=== PATIENT | female | born 1995 | race African-American/Black ===

== ENCOUNTER 2024-04-29 12:20 | Outpatient (RCR) | payer OTHER, SELFPAY ==
[2024-04-29] MEDS: RHO(D) IMMUNE GLOBULIN 1,500 UNIT SYRINGE 1500 UNIT IM (14:32)
[2024-04-29 15:20] VITALS: BP 107/67; PULSE 96; TEMP 36.6; O2SAT 97
== END 2024-05-06 23:59 | disposition home or self-care (01) ==
LOC: INF 12:20
PROVIDERS: PCP Family Medicine; Visit Provider Midwife
DX: O26.893 Other specified pregnancy related conditions, third trimester (principal); Z67.91 Unspecified blood type, Rh negative
CPT/HCPCS: 36415; 86850; 86900; 86901; 96372; J2791

== ENCOUNTER 2024-07-05 17:49 | Observation (INO) | payer OTHER, SELFPAY ==
--- OUTSIDE RECORDS SUMMARY | 2024-07-05 17:55 | XMS_ITS | CCD ---
Author Organization [facility] Care Team Providers Care Clay Digger Name Role Phone Elías LUO, Mariela Torre Primary Care Provider BYRON BROWNING Attending Unavailable FLORO, BYRON L Referring Unavailable FLORO, BYRON L Attending Unavailable FLORO, BYRON Loretta Attending Unavailable FLORO, BYRON Loretta Attending Unavailable FLORO, BYRON L Referring Unavailable FLORO, BYRON Burgos Attending Unavailable MARIELA MAE Attending Unavailable FLORO, BYRON Burgos Attending Unavailable FLORO, BYRON Loretta Referring Unavailable FLORO, BYRON Loretta Attending Unavailable FLORO, BYRON Loretta Attending Unavailable FLORO, BYRON Loretta Attending Unavailable Medications Current Medications Medication Drug Class(es) Dates Sig (Normalized) Sig (Original) aspirin 81 mg delayed release oral tablet (12 sources) Platelet Aggregation Inhibitor, Nonsteroidal Anti-inflammatory Drug Start: 04-07-2024 End: 04-07-2025 take 1 tablet by mouth once daily aspirin 81 MG EC tablet Indications: COVID Take 1 tablet (81 mg) by mouth Daily 30 tablet 4 04/07/2024 04/07/2025 Active ondansetron 8 mg disintegrating oral tablet (20 sources) Serotonin-3 Receptor Antagonist Start: 12-11-2023 take 1 tablet by mouth every eight hours for nausea ondansetron ODT (Zofran-ODT) 8 MG disintegrating tablet Indications: Nausea/vomiting in Take 1 tablet (8 mg) by mouth every 8 (eight) hours if needed for nausea or vomiting 20 tablet 1 12/11/2023 Active MV-Min-Fe Fum-FA-DHA ( 1 PO) (20 sources) MV-Min- Fe Fum-FA-DHA ( 1 PO) Take by mouth Active terconazole 4 mg/ml vaginal cream (3 sources) Azole Antifungal Start: 03-31-2024 End: 04-07-2024 terconazole (Terazol 7) 0.4 % vaginal cream Indications: Yeast infection Insert 1 applicator into the vagina at bedtime for 7 days 45 g 03/31/2024 04/07/2024 Active Problems Active Problems Problem Classification Problem Date Documented Da te Episodic/Chronic Headache; including migraine (15 sources) Migraine without aura, not refractory ; Translations: [Migraine without aura, not intractable, without status migrainosus] Onset: 04-06-2024 04-06-2024 Chronic Malaise and fatigue (15 sources) Fatigue; Translations: [Chronic fatigue, unspecified] Onset: 04-06-2024 04-06-2024 Chronic Menstrual disorders (15 sources) Amenorrhea; Translations: [Amenorrhea, unspecified] Onset: 04-06-2024 04-06-2024 Chronic Other complications of (4 sources) Finding related to ; Translations: [ related conditions, unspecified, third trimester] 04-26-2024 Episodic Other lower respiratory disease (2 sources) Cough; Translations: [Acute cough] 04-06-2024 Episodic Other nervous system disorders (15 sources) Chronic pain; Translations: [Other chronic pain] Onset: 04-06-2024 04-06-2024 Chronic Other screening for suspected conditions (not mental disorders or infectious disease) (4 sources) Patient encounter status; Translations: [Encounter for screening for diseases of the blood and blood-forming organs and certain disorders involving the immune mechanism] 04-26-2024 Episodic Other upper respiratory disease (15 sources) Allergic rhinitis due to pollen; Translations: [Allergic rhinitis due to pollen] Onset: 04-06-2024 04-06-2024 Chronic Substance-related disorders (2 sources) Marijuana user; Translations: [Cannabis use, unspecified, uncomplicated] 03-29-2024 Episodic Viral infection (2 sources) Disease caused by 2019-nCoV; Translations: [COVID-19] 04-06-2024 Episodic Past or Other Problems Problem Classification Problem Date Documented Da te Episodic/Chronic Other and delivery including normal (20 sources) Term ; Translations: [Encounter for supervision of normal , unspecified, unspecified trimester] Onset: 08-17-2018 04-06-2024 Episodic Results Test Name Value Interpretation Reference Range Facility US OB FOLLOW UP TRANSABDOMIN AL APPROACHon 05-10-2024 US OB FOLLOW UP TRANSABDOMINAL APPROACH TITLE OF EXAM: OB Ultrasound: REASON FOR EXAM: Growth. TECHNIQUE: Grayscale and color Doppler imaging is performed. Measurements: heart rate: 143 bpm DYLLAN: 15.8 cm (9.1-23.3) BPD: 7.5 cm HC: 27.3 cm AC: 25.8 cm FL: 5.7 cm GA for sonogram: 29.5 wks (27.7-31.3) Cervix length: 5.9 cm GEETHA: 07/22/2024 Weight Estimate: Weight: 1481 gm / 3 lbs, 4 oz (1406-6432 gm) Hadlock Normal: 1513 gm (8571-0506 gm) Hadlock Wt%: 44% for 29.7 wks CLINICAL SUMMARY: A single intrauterine is noted in cephalic presentation. heart is observed with a heart rate of 143 BPM. size is normal. growth: Consistent with normal growth. motion and organs seen: body and limb movements are observed. Placenta is located posteriorly and fundal. Placenta is Grade II/III Amniotic fluid volume is normal. IMPRESSION: Normal growth. Dictated and transcribed 05/11/24/dpd This report has been electronically signed and approved by the interpreting radiologist. Normal Not Available Laboratory - Microbiology an d Antimicrobial susceptibilityon 04-06-2024 SARS-CoV-2 (COVID-19) RNA SABINO+probe Ql (Unsp spec) Positive Visual[facility] No Panel Informationon 04-06 FLU A Negative [facility] FLU B Negative [facility] [facility] Interpretation and review of laboratory results Abnormal [employer] [facility] US OB 14+ WEEKS ANATOMY SCAN on 03-01-2024 US OB 14+ WEEKS ANATOMY SCAN TITLE OF EXAM: OB Ultrasound: REASON FOR EXAM: survey. TECHNIQUE: Grayscale and color Doppler imaging is performed. Measurements: heart rate: 151 bpm DYLLAN: 16.5 cm (9.2-21.0) BPD: 4.4 cm HC: 16.1 cm AC: 14.9 cm FL: 3.0 cm GA for sonogram: 19.2 wk (17.8-20.6) Hadlock Cervix length: 3.6 cm GEETHA: 07/22/2024 Weight Estimate: Weight: 305 gm / 0 lbs, 10 oz (260-349 gm) Hadlock Normal: 308 gm (256-360 gm) Hadlock Wt%: 48% for 19.6 wks CLINICAL SUMMARY: A single intrauterine is noted in cephalic presentation. Four chamber heart is observed with a heart rate of 151 BPM. motion and organs seen: Normal intracranial anatomy is seen. body and limb movements are observed. spine, limbs, bladder, kidneys, and stomach are observed and within normal limits. Umbilical cord insertion and three vessel cord are identified and within normal limits. diaphragm, lungs, genitalia, four limbs are visualized and normal in appearance. Placenta is located posteriorly. Placenta is Grade 0/III Amniotic fluid volume is normal. Dictated and transcribed 03/03/24/dpd This report has been electronically signed and approved by the interpreting radiologist. Electronically Signed Ruben Rojas M.D. 2024-03-03 12:47:49 Normal Not Available US OB < 14 WEEKS EARLYon US OB < 14 WEEKS EARLY FINDINGS: A single intrauterine gestational sac is present, 3.1 cm,. No subchorionic hemorrhage. A single pole is present. Normal heart rate at 147 beats per minute. Yolk sac also is seen. Current sonographic age is 7 weeks and 3 days based on the crown-rump length measurement of 1.3 cm. Based on this age, current estimated date of delivery is July 23, 2024. No pelvic fluid or adnexal mass present. Cervical closed. Irregular heterogeneous 1.0 x 2.0 cm area deep within the decidual reaction of the lower uterine segment near the cervical uterine junction. IMPRESSION: 1. Findings consistent with a live intrauterine gestation, current sonographic age of 7 weeks and 6 days resulting in an estimated date of delivery of July 23, 2024. 2. Decidual reaction findings of questionable significance. This study can serve as a baseline for follow up examination. TRANSCRIBED BY: ELECTRONICALLY SIGNED BY: Derik Mayfield MD Normal Not Available Vital Signs Date Time Vital Sign Value Performing Clinician Faci lity 06-08-2024 16:23-0500 Body mass index (BMI) [Ratio] 36.61 kg/m2 Byron Browning [facility] Work Phone: [facility] 06-08-2024 16:23-0500 Body weight 99.79 kg Byron Floro CNM Work Phone: [facility] 06-08-2024 16:23-0500 Diastolic blood pressure 78 mm[Hg] Byron Floro CNM Work Phone: [facility] 06-08-2024 16:23-0500 Systolic blood pressure 128 mm[Hg] Byron Floro CNM Work Phone: [facility] 05-26-2024 15:45-0500 Body mass index (BMI) [Ratio] 34.45 kg/m2 Byron Floro CNM Work Phone: [facility] 05-26-2024 15:45-0500 Body weight 93.89 kg Byron Floro CNM Work Phone: [facility] 05-26-2024 15:45-0500 Diastolic blood pressure 80 mm[Hg] Byron Floro CNM Work Phone: [facility] 05-26-2024 15:45-0500 Systolic blood pressure 128 mm[Hg] Byron Floro CNM Work Phone: [facility] 04-26-2024 15:08-0400 Body mass index (BMI) [Ratio] 34.61 kg/m2 Byron Floro CNM Work Phone: [facility] 04-26-2024 15:08-0400 Body weight 94.35 kg Byron Floro CNM Work Phone: [facility] 04-26-2024 15:08-0400 Diastolic blood pressure 60 mm[Hg] Byron Floro CNM Work Phone: [facility] 04-26-2024 15:08-0400 Systolic blood pressure 120 mm[Hg] Byron Floro CNM Work Phone: [facility] 04-06-2024 13:03-0400 Body height 165.1 cm Mariela Mae MD Work Phone: [facility] 04-06-2024 13:03-0400 Body mass index (BMI) [Ratio] 33.85 kg/m2 Mariela Mae MD Work Phone: [facility] 04-06-2024 13:03-0400 Body weight 92.26 kg Mariela Mae MD Work Phone: [facility] 04-06-2024 13:03-0400 Diastolic blood pressure 86 mm[Hg] Mariela Mae MD Work Phone: [facility] 04-06-2024 13:03-0400 Heart rate 108 /min Mariela Mae MD Work Phone: [facility] 04-06-2024 13:03-0400 Respiratory rate 18 /min Mariela Mae MD Work Phone: [facility] 04-06-2024 13:03-0400 SaO2% (BldA) [Mass fraction] 98 % Mariela Mae MD Work Phone: [facility] 04-06-2024 13:03-0400 Systolic blood pressure 132 mm[Hg] Mariela Mae MD Work Phone: [facility] 03-29-2024 17:36-0400 Body mass index (BMI) [Ratio] 34.45 kg/m2 Byron Contreraso CNM Work Phone: [facility] 03-29-2024 17:36-0400 Body weight 93.89 kg Byron Floro CNM Work Phone: [facility] 03-29-2024 17:36-0400 Diastolic blood pressure 78 mm[Hg] Byron Dianeo CNM Work Phone: [facility] 03-29-2024 17:36-0400 Systolic blood pressure 120 mm[Hg] Byron Dianeo CNM Work Phone: [facility] 03-01-2024 16:32-0400 Body mass index (BMI) [Ratio] 32.95 kg/m2 Byron Dianeo CNM Work Phone: [facility] 03-01-2024 16:32-0400 Body weight 89.81 kg Byron Contreraso CNM Work Phone: [facility] 03-01-2024 16:32-0400 Diastolic blood pressure 60 mm[Hg] Byron Dianeo CNM Work Phone: [facility] 03-01-2024 16:32-0400 Systolic blood pressure 110 mm[Hg] Byron Dianeo CNM Work Phone: [facility] 02-03-2024 16:32-0400 Body mass index (BMI) [Ratio] 32.62 kg/m2 Byron Contreraso CNM Work Phone: [facility] 02-03-2024 16:32-0400 Body weight 88.91 kg Byron Contreraso CNM Work Phone: [facility] 02-03-2024 16:32-0400 Diastolic blood pressure 76 mm[Hg] Byron Dianeo CNM Work Phone: [facility] 02-03-2024 16:32-0400 Systolic blood pressure 120 mm[Hg] Byron Dianeo CNM Work Phone: [facility] Encounters Encounter Date Encounter Type Care Provider Facility Start: 07-05-2024 End: 07-05-2024 Telephone encounter Byron Browning CNM Work Phone: [facility] Start: 06-22-2024 End: 06-22-2024 ambulatory BYRON L FLORO Not Available Start: 06-22-2024 End: 06-22-2024 Bamboo flowsheet Byron Loretta Contreraso CNM Work Phone: [facility] Start: 06-22-2024 End: 06-22-2024 Bamboo flowsheet Byron Loretta Contreraso CNM Work Phone: [facility] Start: 06-08-2024 End: 06-08-2024 ambulatory BYRON L FLORO Not Available Start: 06-08-2024 End: 06-08-2024 Subsequent care visit Byron Contreraso CNM Work Phone: [facility] Comment on above: Encounter for superv ision of other normal , third trimester (Primary Dx) Start: 06-08-2024 End: 06-08-2024 Bamboo flowsheet Byron L Floro CNM Work Phone: [facility] Start: 06-08-2024 End: 06-08-2024 Bamboo flowsheet Byron L Floro CNM Work Phone: [facility] Start: 05-27-2024 End: 07-05-2024 Telephone encounter Byron L Floro CNM Work Phone: [facility] Start: 05-26-2024 End: 05-26-2024 Office outpatient visit 15 minutes Byron L Floro CNM Work Phone: [facility] Comment on above: Encounter for superv ision of other normal , third trimester (Primary Dx) Start: 05-26-2024 End: 05-26-2024 ambulatory BYRON L FLORO Not Available Start: 05-26-2024 End: 05-26-2024 Bamboo flowsheet Byron L Floro CNM Work Phone: [facility] Start: 05-26-2024 End: 05-26-2024 Bamboo flowsheet Byron L Floro CNM Work Phone: [facility] Start: 05-10-2024 End: 05-10-2024 ambulatory BYRON L FLORO Not Available Start: 04-26-2024 End: 04-26-2024 Office outpatient visit 15 minutes Byron L Floro CNM Work Phone: [facility] Comment on above: Screening for iron d eficiency anemia; Screening for diabetes mellitus; related condition in third trimester Start: 04-26-2024 End: 04-26-2024 ambulatory BYRON L FLORO Not Available Start: 04-26-2024 End: 04-26-2024 Bamboo flowsheet Byron L Floro CNM Work Phone: [facility] Start: 04-26-2024 End: 04-26-2024 Bamboo flowsheet Byrno L Floro CNM Work Phone: [facility] Start: 04-07-2024 End: 04-07-2024 Telephone encounter Byron L Floro CNM Work Phone: [facility] Start: 04-06-2024 End: 04-06-2024 Office outpatient visit 15 minutes Mariela Mae MD Work Phone: [facility] Comment on above: COVID-19 (Primary Dx ); Acute cough Start: 04-06-2024 End: 04-06-2024 ambulatory MARIELA MAE Not Available Start: 03-29-2024 End: 03-29-2024 Office outpatient visit 15 minutes Byron L Floro CNM Work Phone: [facility] Comment on above: Encounter for superv ision of other normal , second trimester (Primary Dx); Marijuana use Start: 03-29-2024 End: 03-29-2024 ambulatory BYRON L FLORO Not Available Start: 03-29-2024 End: 03-29-2024 Bamboo flowsheet Byron L Floro CNM Work Phone: [facility] Start: 03-29-2024 End: 03-29-2024 Bamboo flowsheet Byron L Floro CNM Work Phone: [facility] Start: 03-17-2024 End: 03-17-2024 Telephone encounter Byron L Floro CNM Work Phone: [facility] Start: 03-01-2024 End: 03-01-2024 Office outpatient visit 15 minutes Byron L Floro CNM Work Phone: [facility] Comment on above: Encounter for superv ision of other normal , second trimester (Primary Dx) Start: 03-01-2024 End: 03-01-2024 ambulatory BYRON L FLORO Not Available Start: 03-01-2024 End: 03-01-2024 Bamboo flowsheet Byron L Floro CNM Work Phone: [facility] Start: 03-01-2024 End: 03-01-2024 Bamboo flowsheet Byron L Floro CNM Work Phone: [facility] Start: 02-03-2024 End: 02-03-2024 Office outpatient visit 15 minutes Byron L Floro CNM Work Phone: [facility] Comment on above: related co ndition in second trimester (Primary Dx); Encounter for supervision of other normal , second trimester Start: 02-03-2024 End: 02-03-2024 ambulatory BYRON L FLORO Not Available Start: 01-05-2024 End: 01-05-2024 ambulatory BYRON L FLORO Not Available Start: 12-11-2023 End: 12-11-2023 ambulatory BYRON L FLORO Not Available Procedures Date Procedure Procedure Detail Performing Clinician Start: 04-06-2024 STATUS COVID-19/FLU Heidy Mae MD Work Phone: Plan of Treatment Date Care Activity Detail Author Start: 07-12-2024 End: 07-12-2024 Patient encounter procedure 07/12/2024 6:30 PM EST Routine [facility] [address] [place] [id number] Byron Browning, CN [address] [place] [address] [facility] Start: 07-05-2024 End: 07-05-2024 Patient encounter procedure [facility] Start: 06-22-2024 End: 06-22-2024 Patient encounter procedure 06/22/2024 4:15 PM EST Routine [facility] [address] [place] [id number] Byron Browning, CNM [address] [place] [address] [facility] Start: 06-08-2024 End: 06-08-2024 Patient encounter procedure 06/08/2024 4:15 PM EST Routine [facility] [address] [place] [id number] Byron Browning, [facility] [address] [place] [address] [facility] Start: 06-01-2024 Influenza vaccination Influenza Vacc ine (#1) [facility] Comment on above: Postponed from 03/07 (Patient Ill Today) Start: 05-26-2024 End: 05-26-2024 Patient encounter procedure 05/26/2024 3:45 PM EST Routine [facility] [address] [place] [address] Byron Browning, [facility] [address] [place] [address] Arrived [facility] Comment on above: Arrived Start: 04-26-2024 End: 04-26-2024 Patient encounter procedure [facility] Comment on above: Arrived Start: 04-26-2024 End: 04-26-2025 CBC panel - Blood by Automated count CBC Lab Routine Screening for iron deficiency anemia Expected: 04/26/2024 (Approximate), Expires: 04/26/2025 [facility] Comment on above: Expected: 04/26/2024 (Approximate), Expires: 04/26/2025 Start: 04-26-2024 End: 04-26-2025 GLUCOSE, GESTATIONAL SCREEN (50G)-135 CUTOFF GLUCOSE, GESTATIONAL SCREEN (50G)-135 CUTOFF Lab Routine Screening for diabetes mellitus Expected: 04/26/2024 (Approximate), Expires: 04/26/2025 [facility] Work Phone: Comment on above: Expected: 04/26/2024 (Approximate), Expires: 04/26/2025 Start: 04-26-2024 End: 04-26-2025 US for US OB follow up transabdominal approach Imaging Routine related condition in third trimester Expected: 04/26/2024, Expires: 04/26/2025 [facility] Comment on above: Expected: 04/26/2024 , Expires: 04/26/2025 Start: 03-29-2024 End: 03-29-2024 Patient encounter procedure [facility] Comment on above: Arrived Start: 03-07-2024 Influenza vaccination Influenza Vacc ine (#1) [facility] Start: 03-01-2024 End: 03-01-2024 Professional / ancillary services management 03/01/2024 5:00 PM EDT Ancillary Procedure [facility] [address] [place] [address] [facility] Start: 03-01-2024 End: 03-01-2024 Patient encounter procedure [facility] Comment on above: Arrived Start: 02-03-2024 End: 02-02-2025 US for US OB 14+ weeks anatomy scan Imaging Routine related condition in second trimester Expected: 02/03/2024, Expires: 02/02/2025 [facility] Work Phone: Comment on above: Expected: 02/03/2024 , Expires: 02/02/2025 Immunizations Immunization Date Immunization Notes Care Provider Cheal brooke 08-19-2018 tetanus toxoid, redu nadia diphtheria toxoid, and acellular pertussis vaccine, adsorbed Mariela Mae MD Work Phone: [facility] 08-18-2018 RHO(D) immune globul in- IV or IM Mariela Mae MD Work Phone: [facility] 06-01-2018 RHO(D) immune globul in- IV or IM Mariela Mae MD Work Phone: [facility] 05-18-2018 influenza, injectabl e, quadrivalent, contains preservative Mariela Mae MD Work Phone: [facility] 05-18-2018 tetanus toxoid, redu nadia diphtheria toxoid, and acellular pertussis vaccine, adsorbed Mariela Mae MD Work Phone: [facility] 05-18-2018 influenza virus vacc ine, unspecified formulation Byron Browning CNM Work Phone: [facility] 09-05-2010 human papilloma viru s vaccine, quadrivalent Mariela Mae MD Work Phone: [facility] 09-05-2010 varicella virus vaccine Mariela Mae MD Work Phone: [facility] 04-23-2010 human papilloma viru s vaccine, quadrivalent Mariela Mae MD Work Phone: [facility] 02-19-2010 human papilloma viru s vaccine, quadrivalent Mariela Mae MD Work Phone: [facility] 02-19-2010 meningococcal polysaccharide (groups A, C, Y and W-135) diphtheria toxoid conjugate vaccine (MCV4P) Mariela Mae MD Work Phone: [facility] 02-19-2010 tetanus toxoid, redu nadia diphtheria toxoid, and acellular pertussis vaccine, adsorbed Mariela Mae MD Work Phone: [facility] 09-09-2002 diphtheria, tetanus toxoids and acellular pertussis vaccine, 5 pertussis antigens Mariela Mae MD Work Phone: [facility] 09-09-2002 measles, mumps and r ubella virus vaccine Mariela Mae MD Work Phone: [facility] 09-09-2002 poliovirus vaccine, inactivated Mariela Mae MD Work Phone: [facility] 10-18-1998 diphtheria, tetanus toxoids and acellular pertussis vaccine, unspecified formulation Mariela aMe MD Work Phone: [facility] 10-18-1998 haemophilus influenz ae type b vaccine, conjugate unspecified formulation Mariela Mae MD Work Phone: [facility] 07-06-1998 measles, mumps and r ubella virus vaccine Mariela Mae MD Work Phone: [facility] 07-06-1998 trivalent poliovirus vaccine, live, oral Mariela Mae MD Work Phone: [facility] 07-06-1998 varicella virus vaccine Mariela Mae MD Work Phone: [facility] 01-02-1998 diphtheria, tetanus toxoids and acellular pertussis vaccine, unspecified formulation Mariela Mae MD Work Phone: [facility] 01-02-1998 haemophilus influenz ae type b conjugate and Hepatitis B vaccine Mariela Mae MD Work Phone: [facility] 1997 diphtheria, tetanus toxoids and acellular pertussis vaccine, unspecified formulation Mariela Mae MD Work Phone: [facility] 1997 haemophilus influenz ae type b vaccine, conjugate unspecified formulation Mariela Mae MD Work Phone: [facility] 1997 poliovirus vaccine, inactivated Mariela Mae MD Work Phone: [facility] 1997 diphtheria, tetanus toxoids and acellular pertussis vaccine, unspecified formulation Mariela Mae MD Work Phone: [facility] 1997 haemophilus influenz ae type b conjugate and Hepatitis B vaccine Mariela Mae MD Work Phone: [facility] 1997 poliovirus vaccine, inactivated Mariela Mae MD Work Phone: [facility] 1997 hepatitis B vaccine, pediatric or pediatric/adolescent dosage Mariela Mae MD Work Phone: [facility] Payers Date Payer Category Payer Private Health Insurance [employer] [id number] 2023 Medicaid [id number] 2023 Medicaid [id number] 2023 Unknown [id number] 2022 Private Health Insurance [id number] 1997 Unknown [id number] [id number]. 9 1997 Unknown [id number] [id number]. 1258 1997 Unknown [id number] [id number]. 1258 1997 Unknown [id number] [id number]. 1258 1997 Unknown [id number] 2.16.840.1.880705.3.579.2. 1258 1997 Unknown [id number] 2.16.840.1.214655.3.579.2. 1258 1997 Unknown [id number] 2.16.840.1.105243.3.579.2. 9 1997 Unknown [id number] 2.16.840.1.241533.3.579.2. 1258 1997 Unknown [id number] 2.16.840.1.328864.3.579.2. 9 1997 Unknown [id number] 2.16.840.1.724891.3.579.2. 9 1997 Unknown [id number] 2.16.840.1.572155.3.579.2. 9 1997 Unknown [id number] 2.16.840.1.189023.3.579.2. 9 1997 Unknown [id number]. 1259 Social History Date Type Detail Facility Start: 12-11-2023 Tobacco smoking stat [facility] Never smoked tobacco [facility] Start: 12-11-2023 Tobacco use and exposure Smokeless t obacco non-user [facility] Start: 12-11-2023 End: 10-01-2024 Alcoholic beverage intake Ex-drinker (finding) [facility] Start: 12-11-2023 End: 04-06-2024 History of Social function [facility] Start: 12-11-2023 End: 04-06-2024 Tobacco use panel [facility] Start: 04-23-2023 Alcohol Comment Alcohol: 1 or 2 drinks on a typical day/monthly or less Caffeine: 2-3 cups/day coffee [facility] Start: 10-30-2023 [facility] Start: 1997 Sex assigned at Not on file [facility] Start: 09-18-2022 Gender identity Identifies as female gender (finding) [facility] Clinical Notes 02-03-2024 to 07-05-2024 Telephone Encounter - Gregoria Lam - 07/05/2024 2:18 PM ESTTelephone Encounter - Gregoria Lam - 07/05/2024 2:18 PM ESTByron Browning CNM - 06/08/2024 4:15 PM EST Note Date & Type Note Facility 07-05-2024 Telephone encount er Note Vm left 12:40 Pt is 38 weeks and hasn't been feeling well and would like a callback star [facility] 07-05-2024 Miscellaneous Notes Formattin g of this note might be different from the original. Vm left 12:40 Pt is 38 weeks and hasn't been feeling well and would like a callback star documented in this encounter [facility] 06-08-2024 History of Presen t illness Narrative Subjective No chief complaint on file. Nusrat Araiza is a 28 y.o. at 33w5d with a working estimated date of delivery of 07/22/2024, by Last Menstrual Period who presents for a routine visit. She denies vaginal bleeding, leakage of fluid, decreased movements, or contractions. OB History Para Term AB Living 3 2 2 0 0 2 SAB IAB Ectopic Multiple Live Births 0 0 0 0 2 # Outcome Date GA Lbr Jt/2nd Weight Sex Type Anes PTL Lv 3 Current 2 Term 08/18/18 39w1d 04:26 / 00:04 6 lb 7.4 oz M Vag-Spont EPI N MICKY 1 Term 03/19/16 40w0d F Vag-Spont EPI MICKY Obstetric Comments Ages of children: 4, 20 months Her is complicated by: Objective Physical Exam weight: 220 lb Expected Total Weight Gain: 11 lb-19 lb Pregravid BMI: 31.12 Heart Rate: 154 Urine protein-negative Urine glucose-negative Assessment/Plan Diagnoses and all orders for this visit: Encounter for supervision of other normal , third trimester Continue vitamin. Labs reviewed. GBS at 36 weeks Expected mode of delivery Follow up in 1 week for a routine visit. documented in this encounter [facility] 05-27-2024 Telephone encount er Note Pt states she cannot remember what medicine she was told that she could take for nausea heartburn. And now she is having some diarrhea. [facility] 05-27-2024 Miscellaneous Notes Formattin g of this note might be different from the original. Pt states she cannot remember what medicine she was told that she could take for nausea heartburn. And now she is having some diarrhea. documented in this encounter [facility] 05-26-2024 History of Presen t illness Narrative Subjective No chief complaint on file. Nusrat Araiza is a 28 y.o. at 31w6d with a working estimated date of delivery of 07/22/2024, by Last Menstrual Period who presents for a routine visit. She denies vaginal bleeding, leakage of fluid, decreased movements, or contractions. OB History Para Term AB Living 3 2 2 0 0 2 SAB IAB Ectopic Multiple Live Births 0 0 0 0 2 # Outcome Date GA Lbr Jt/2nd Weight Sex Type Anes PTL Lv 3 Current 2 Term 02/12/19 39w1d 04:26 / 00:04 6 lb 7.4 oz M Vag-Spont EPI N MICKY 1 Term 03/19/16 40w0d F Vag-Spont EPI MICKY Obstetric Comments Ages of children: 4, 20 months Her is complicated by: heartburn Objective Physical Exam weight: 207 lb Expected Total Weight Gain: 11 lb-19 lb Pregravid BMI: 31.12 BP: 128/80 Urine protein-negative Urine glucose-negative Assessment/Plan Diagnoses and all orders for this visit: Encounter for supervision of other normal , third trimester Continue vitamin. Labs reviewed. GBS at 36 weeks Expected mode of delivery Follow up in 2 weeks for a routine visit. documented in this encounter [facility] 04-26-2024 History of Presen t illness Narrative Subjective No chief complaint on file. Nusrat Araiza is a 28 y.o. at 27w4d with a working estimated date of delivery of 07/22/2024, by Last Menstrual Period who presents for a routine visit. She denies vaginal bleeding, leakage of fluid, decreased movements, or contractions. OB History Para Term AB Living 3 2 2 0 0 2 SAB IAB Ectopic Multiple Live Births 0 0 0 0 2 # Outcome Date GA Lbr Jt/2nd Weight Sex Type Anes PTL Lv 3 Current 2 Term 08/18/18 39w1d 04:26 / 00:04 6 lb 7.4 oz M Vag-Spont EPI N MICKY 1 Term 03/19/16 40w0d F Vag-Spont EPI MICKY Obstetric Comments Ages of children: 4, 20 months Her is complicated by: Objective Physical Exam weight: 208 lb Expected Total Weight Gain: 11 lb-19 lb Pregravid BMI: 31.12 BP: 120/60 Urine protein-negative Urine glucose-negative Assessment/Plan Diagnoses and all orders for this visit: Screening for iron deficiency anemia - CBC; Future Screening for diabetes mellitus - GLUCOSE, GESTATIONAL SCREEN (50G)-135 CUTOFF; Future related condition in third trimester - US OB follow up transabdominal approach; Future Continue vitamin. Labs reviewed. GBS at 36 weeks Expected mode of delivery Follow up in 2 weeks for a growth US and then 4 weeks for routine visit. documented in this encounter [facility] 04-07-2024 Telephone encount er Note Pt would like the rx for baby asprin sent to [facility] [place] in [place]. [facility] 04-07-2024 Miscellaneous Notes Formattin g of this note might be different from the original. Pt would like the rx for baby asprin sent to [facility] in [place]. documented in this encounter [facility] 04-06-2024 History of Presen t illness Narrative Nusrat Araiza is a 28 y.o. female presents with chief complaint of Cough and Generalized Body Aches HPI: HPI X 2 days 26 weeks , Denies dyspnea SUBJECTIVE: MEDICATIONS: Current Outpatient Medications Medication Instructions ondansetron ODT (ZOFRAN-ODT) 8 mg, Oral, Every 8 hours PRN MV-Min-Fe Fum-FA-DHA ( 1 PO) Oral terconazole (Terazol 7) 0.4 % vaginal cream 1 applicator, Vaginal, Nightly ALLERGIES: No Known Allergies SURGICAL HISTORY: No past surgical history on file. FAMILY HISTORY: No family history on file. SOCIAL HISTORY: Social History Tobacco Use Smoking status: Never Smokeless tobacco: Never Substance Use Topics Alcohol use: Not Currently Comment: Alcohol: 1 or 2 drinks on a typical day/monthly or less Caffeine: 2-3 cups/day coffee Drug use: Yes Types: Marijuana Depression: Not on file REVIEW OF SYMPTOMS: Review of Systems OBJECTIVE: Visit Vitals LMP 10/16/2023 (Exact Date) OB Status Smoking Status Never Visit Vitals BP 132/86 (BP Location: Left arm, Patient Position: Sitting, BP Cuff Size: Large adult) Pulse 108 Resp 18 Ht 5' 5 Wt 203 lb 6.4 oz LMP 10/16/2023 (Exact Date) SpO2 98% BMI 33.85 kg/m OB Status Smoking Status Never BSA 2.06 m Physical Exam Constitutional: Appearance: Normal appearance. She is normal weight. HENT: Head: Normocephalic and atraumatic. Right Ear: Tympanic membrane and ear canal normal. Left Ear: Tympanic membrane and ear canal normal. Nose: Congestion and rhinorrhea present. Mouth/Throat: Mouth: Mucous membranes are moist. Pharynx: Oropharyngeal exudate present. Eyes: Pupils: Pupils are equal, round, and reactive to light. Cardiovascular: Rate and Rhythm: Normal rate and regular rhythm. Heart sounds: No murmur heard. Pulmonary: Effort: Pulmonary effort is normal. Breath sounds: Normal breath sounds. No wheezing or rhonchi. Musculoskeletal: General: No swelling. Cervical back: Normal range of motion and neck supple. Right lower leg: No edema. Left lower leg: No edema. Lymphadenopathy: Cervical: No cervical adenopathy. Skin: General: Skin is warm and dry. Findings: No rash. Neurological: Mental Status: She is oriented to person, place, and time. Sensory: No sensory deficit. Gait: Gait normal. Psychiatric: Mood and Affect: Mood normal. Thought Content: Thought content normal. Judgment: Judgment normal. ASSESSMENT AND PLAN: Assessment/Plan Problem List Items Addressed This Visit None Visit Diagnoses COVID-19 - Primary Acute cough Relevant Orders STATUS COVID-19/FLU (Completed) Fluids tylenol rest. Short walks several times per day to prevent blood clots and pneumonia Call if increase dyspnea or change in symptoms documented in this encounter [facility] 03-29-2024 History of Presen t illness Narrative Subjective No chief complaint on file. Nusrat Araiza is a 28 y.o. at 23w4d with a working estimated date of delivery of 07/22/2024, by Last Menstrual Period who presents for a routine visit. She denies vaginal bleeding, leakage of fluid, decreased movements, or contractions. OB History Para Term AB Living 3 2 2 0 0 2 SAB IAB Ectopic Multiple Live Births 0 0 0 0 2 # Outcome Date GA Lbr Jt/2nd Weight Sex Type Anes PTL Lv 3 Current 2 Term 08/18/18 39w1d 04:26 / 00:04 6 lb 7.4 oz M Vag-Spont EPI N MICKY 1 Term 03/19/16 40w0d F Vag-Spont EPI MICKY Obstetric Comments Ages of children: 4, 20 months Her is complicated by: + marijuana use The following portions of the chart were reviewed this encounter and updated as appropriate: Objective Physical Exam weight: 207 lb Expected Total Weight Gain: 11 lb-19 lb Pregravid BMI: 31.12 BP: 120/78 Urine protein-negative Urine glucose-negative Labs: reviewed Imaging Assessment/Plan Diagnoses and all orders for this visit: Encounter for supervision of other normal , second trimester Marijuana use Continue vitamin. Labs reviewed Rhogam needed at 28 weeks GTT at 28 weeks Follow up in 4 weeks for a routine visit. documented in this encounter [facility] 03-17-2024 Telephone encount er Note Nusrat was put on a Steroid and an Antibiotic for Sinus inf - she wants to make sure its ok to take being . Please call her at [phone] [facility] 03-17-2024 Miscellaneous Notes Formattin g of this note might be different from the original. Nusrat was put on a Steroid and an Antibiotic for Sinus inf - she wants to make sure its ok to take being . Please call her at [phone] documented in this encounter [facility] 03-01-2024 History of Presen t illness Narrative Subjective No chief complaint on file. Nusrat Araiza is a 28 y.o. at 19w4d with a working estimated date of delivery of 07/22/2024, by Last Menstrual Period who presents for a routine visit. She denies vaginal bleeding, leakage of fluid, decreased movements, or contractions. OB History Para Term AB Living 3 2 2 0 0 2 SAB IAB Ectopic Multiple Live Births 0 0 0 0 2 # Outcome Date GA Lbr Jt/2nd Weight Sex Type Anes PTL Lv 3 Current 2 Term 08/18/18 39w1d 04:26 / 00:04 6 lb 7.4 oz M Vag-Spont EPI N MICKY 1 Term 03/19/16 40w0d F Vag-Spont EPI MICKY Obstetric Comments Ages of children: 4, 20 months Her is complicated by: The following portions of the chart were reviewed this encounter and updated as appropriate: Objective Physical Exam Expected Total Weight Gain: 11 lb-19 lb Pregravid BMI: 31.12 Urine protein-negative Urine glucose-negative Labs: reviewed Imaging Assessment/Plan Diagnoses and all orders for this visit: Encounter for supervision of other normal , second trimester Continue vitamin. Labs reviewed. Rhogam needed at 28 weeks GTT Follow up in 2 weeks for a routine visit. Subjective No chief complaint on file. Nusrat Araiza is a 28 y.o. at 19w4d with a working estimated date of delivery of 07/22/2024, by Last Menstrual Period who presents for a routine visit. She denies vaginal bleeding, leakage of fluid, decreased movements, or contractions. OB History Para Term AB Living 3 2 2 0 0 2 SAB IAB Ectopic Multiple Live Births 0 0 0 0 2 # Outcome Date GA Lbr Jt/2nd Weight Sex Type Anes PTL Lv 3 Current 2 Term 08/18/18 39w1d 04:26 / 00:04 6 lb 7.4 oz M Vag-Spont EPI N MICKY 1 Term 03/19/16 40w0d F Vag-Spont EPI MICKY Obstetric Comments Ages of children: 4, 20 months Her is complicated by: The following portions of the chart were reviewed this encounter and updated as appropriate: Objective Physical Exam weight: 198 lb Expected Total Weight Gain: 11 lb-19 lb Pregravid BMI: 31.12 BP: 110/60 Urine protein-negative Urine glucose-negative Labs: reviewed Imaging Assessment/Plan Diagnoses and all orders for this visit: Encounter for supervision of other normal , second trimester Continue vitamin. Labs reviewed. Rhogam needed at 28 weeks GTT at 28 weeks Follow up in 4 weeks for a routine visit. documented in this encounter [facility] 02-03-2024 History of Presen t illness Narrative Subjective No chief complaint on file. Nusrat Araiza is a 28 y.o. at 15w5d with a working estimated date of delivery of 07/22/2024, by Last Menstrual Period who presents for a routine visit. She denies vaginal bleeding, leakage of fluid, decreased movements, or contractions. OB History Para Term AB Living 3 2 2 0 0 2 SAB IAB Ectopic Multiple Live Births 0 0 0 0 2 # Outcome Date GA Lbr Jt/2nd Weight Sex Type Anes PTL Lv 3 Current 2 Term 08/18/18 39w1d 04:26 / 00:04 6 lb 7.4 oz M Vag-Spont EPI N MICKY 1 Term 03/19/16 40w0d F Vag-Spont EPI MICKY Obstetric Comments Ages of children: 4, 20 months Her is complicated by: + marijuana The following portions of the chart were reviewed this encounter and updated as appropriate: Objective Physical Exam weight: 196 lb Expected Total Weight Gain: 11 lb-19 lb Pregravid BMI: 31.12 BP: 120/76 Urine protein negative Urine glucose negative Labs: reviewed Imaging Assessment/Plan Diagnoses and all orders for this visit: related condition in second trimester - US OB 14+ weeks anatomy scan; Future Encounter for supervision of other normal , second trimester Continue vitamin. Labs reviewed. Rhogam needed A- negative GTT at 28 weeks Follow up in 4 weeks for a routine visit. documented in this encounter [facility] Evaluation note Diagnosis COVID-19- Primary Acute cough [facility] Diagnosis Screening for iron deficiency anemia Screening for diabetes mellitus related condition in third trimester documented [facility] Diagnosis Encounter for supervision of other normal , third trimester- Primary documented [facility]* Diagnosis Encounter for supervision of other normal , second trimester- Primary documented [facility]* Diagnosis related condition in second trimester- Primary Encounter for supervision of other normal , second trimester documented [facility] Diagnosis Encounter for supervision of other normal , second trimester- Primary Marijuana use documented in this encounter [facility] Summary Purpose Family History No Family History Records Found Advance Directives No Advanced Directives Records Found Additional Source Comments Reason for Visit (unrecogniz ed section and content) Reason Comments Cough Generalized Body Aches Care Teams (unrecognized sec tion and content) Clay Digger Relationship Specialty Start Date End Date Mariela Mae MD [address] [facility] [place] [address] PCP - General Family Medicine 11/12/22 Clay Digger Relationship Specialty Start Date End Date Mariela Mae MD [address] [facility] [place] [address] PCP - General Family Medicine 11/12/22 Clay Digger Relationship Specialty Start Date End Date Mariela Mae MD [address] [facility] [place] [address] PCP - General Family Medicine 11/12/22 Clay Digger Relationship Specialty Start Date End Date Mariela Mae MD [address] [facility] [place] [address] PCP - General Family Medicine 11/12/22 Clay Digger Relationship Specialty Start Date End Date Mariela Mae MD [address] [facility] [place] [address] PCP - General Family Medicine 11/12/22 Clay Digger Relationship Specialty Start Date End Date Mariela Mae MD [address] [facility] [place] [address] PCP - General Family Medicine 11/12/22 Clay Digger Relationship Specialty Start Date End Date Mariela Mae MD [address] [facility] [place] [address] PCP - General Family Medicine 11/12/22 Clay Digger Relationship Specialty Start Date End Date Mariela Mae MD [address] [facility] [place] [address] PCP - General Family Medicine 11/12/22 Clay Digger Relationship Specialty Start Date End Date Mariela Mae MD [address] [facility] [place], [place] [id number] PCP - General Family Medicine 11/12/22 INFORMATION SOURCE (unrecogn ized section and content) DATE CREATED AUTHOR 06/26/2024 [facility] FOR RECORDS PERTAINING TO PATIENTS WHO ARE OR HAVE BEEN ENROLLED IN A CHEMICAL DEPENDENCY/SUBSTANCEABUSE PROGRAM, SOME INFORMATION MAY BE OMITTED. This clinical summary was aggregated from multiple sources. Caution should be exercised in using it in the provision of clinical care. This summary normalizes information from multiple sources, and as a consequence, information in this document may materially change the coding, format and clinical context of patient data. In addition, data may be omitted in some cases. CLINICAL DECISIONS SHOULD BE BASED ON THE PRIMARY CLINICAL RECORDS. [facility]. provides no warranty or guarantee of the accuracy or completeness of information in this document.
[2024-07-05 18:05] VITALS: BP 134/88; PULSE 92
[2024-07-05 18:20] VITALS: BP 135/93; PULSE 89
[2024-07-05 18:27] LABS: Basophils Percent Auto 0.2 % (0.2-2.0); Eosinophils Absolute Auto 0.1 10^3/uL (0.0-0.7); Eosinophils Percent Auto 0.9 % (0.9-7.0); Hematocrit 33.4 % (36.0-48.0); Hemoglobin 11.6 g/dL (12.0-16.0); Immature Granulocytes Abs Auto 0.17 10^3/uL (0.00-0.03); Immature Granulocytes Pct Auto 1.4 % (0.0-0.5); Lymphocytes Absolute Auto 1.1 10^3/uL (1.2-3.8); Lymphocytes Percent Auto 9.4 % (20.5-60.0); Mean Corpuscular HGB Conc 34.7 g/dL (29.9-35.2); Mean Corpuscular Hemoglobin 30.4 pg (26.7-34.0); Mean Corpuscular Volume 87.4 fL (81.0-99.0); Mean Platelet Volume 10.4 fL (9.5-13.5); Monocytes Absolute Auto 0.5 10^3/uL (0.3-0.8); Monocytes Percent Auto 4.6 % (1.7-12.0); Neutrophils Absolute Auto 9.9 10^3/uL (1.4-6.5); Neutrophils Percent Auto 83.5 % (43.0-75.0); Platelet Count 254 10^3/uL (150-450); Red Blood Count 3.82 10^6/uL (4.20-5.40); Red Cell Distribution Width 13.1 % (11.0-15.0); White Blood Count 11.8 10^3/uL (4.0-11.0)
[2024-07-05 18:30] LABS: Protein Creatinine Ratio Urine 0.24; Total Protein Urine Random 23.6 mg/dL (<=11.9)
[2024-07-05 18:35] VITALS: BP 142/91; PULSE 91
[2024-07-05 18:42] LABS: Alanine Aminotransferase 24 U/L (14-59); Albumin Globulin Ratio 0.8; Albumin Level 2.8 g/dL (3.4-5.0); Alkaline Phosphatase 192 U/L (46-116); Aspartate Amino Transferase 22 U/L (15-37); BUN Creatinine Ratio 9.8; Bilirubin Total 0.5 mg/dL (0.2-1.0); Calcium 8.9 mg/dL (8.5-10.1); Carbon Dioxide 21.7 mmol/L (21.0-32.0); Chloride 103 mmol/L (98-107); Estimated GFR (African America >60 (>=60 mL/min/1.73m^2); Estimated GFR (Non-African Ame >60 (>=60 mL/min/1.73m^2); Globulin 3.5 g/dL; Glucose 79 mg/dL (74-106); Lactate Dehydrogenase 171 U/L (81-234); Potassium 3.7 mmol/L (3.5-5.1); Sodium 137 mmol/L (136-145); Total Protein 6.3 g/dL (6.4-8.2)
[2024-07-05 18:50] VITALS: BP 142/88; PULSE 99
[2024-07-05] MEDS: LABETALOL HCL 100 MG TABLET PO (19:32)
== END 2024-07-05 19:34 | disposition home or self-care (01) ==
PROVIDERS: Midwife; Admitting Provider Obstetrics & Gynecology; PCP Family Medicine; Visit Provider Obstetrics & Gynecology
DX: O16.9 Unspecified maternal hypertension, unspecified trimester (principal); Z3A.00 Weeks of gestation of pregnancy not specified
CPT/HCPCS: 36415; 59025; 80053; 82570; 83615; 84156; 85025; G0378; G0379

== ENCOUNTER 2024-07-12 00:34 | Outpatient (OUT) | payer OTHER, SELFPAY ==
--- NOTE | 2024-07-12 | US_ITS ---
[address] [address] Patient Name: REGGIE ROSARIO MRN: [id number] date: 1995 Sex: F Assigned Patient Location: [facility] Current Patient Location: Accession/Order Number: [id number] Exam Date: 07/12/2024 09:30 Report Date: 07/12/2024 10:27 At the request of: BYRON TRAYLOR Procedure: US OB BPP w non-stress EXAMINATION: US OB BPP w non-stress HISTORY: Elevated blood pressures COMPARISON: No relevant comparison available. TECHNIQUE: Ultrasound biophysical profile was performed in the radiology department. non-reactive stress testing was performed by nursing staff in the birthing center. FINDINGS: BREATHING MOVEMENTS: 2 GROSS BODY MOVEMENTS: 2 TONE: 2 QUALITATIVE AMNIOTIC FLUID VOLUME: 2 PRESENTATION: CEPHALIC HEART RATE: 149.17 bpm AMNIOTIC FLUID VOLUME: 13.0 cm GESTATIONAL AGE: 38 weeks 4 days US/US OB BPP w non-stress IMPRESSION: Total biophysical profile score: 8 Electronically authenticated by: CARTER ROMAN Date: 07/12/2024 10:27
[2024-07-12 09:04] VITALS: BP 139/90; PULSE 100
[2024-07-12 09:18] LABS: Creatinine Urine Random 85.86 mg/dL (20.00-300.00); Protein Creatinine Ratio Urine 0.24; Total Protein Urine Random 20.3 mg/dL (<=11.9)
[2024-07-12 09:35] VITALS: BP 128/81; PULSE 94
== END 2024-07-12 10:05 | disposition home or self-care (01) ==
LOC: FBCO 00:35 → FBC 08:55
PROVIDERS: PCP Family Medicine; Visit Provider Midwife
DX: O16.3 Unspecified maternal hypertension, third trimester (principal); Z3A.38 38 weeks gestation of pregnancy
CPT/HCPCS: 76818; 82570; 84156

== ENCOUNTER 2024-07-15 15:44 | Outpatient (OUT) | payer OTHER, SELFPAY ==
--- OUTSIDE RECORDS SUMMARY | 2024-07-15 15:53 | XMS_ITS | CCD ---
Author Organization [facility] Care Team Providers Care Human Resources Operations Coordinator Name Role Phone Elías LUO, Mariela Torre Primary Care Provider FLORCARMINA AlvarezE Loretta Attending Unavailable FLORO, BYRON L Referring Unavailable FLORO, BYRON L Attending Unavailable FLORO, BYRON L Attending Unavailable FLORO, BYRON L Attending Unavailable FLORO, BYRON L Referring Unavailable FLORO, BYRON Loretta Attending Unavailable MARIELA MCKINLEY Attending Unavailable FLORO, BYRON L Attending Unavailable FLORO, BYRON L Referring Unavailable FLORO, BYRON L Attending Unavailable FLORO, BYRON Loretta Attending Unavailable FLORO, BYRON L Attending Unavailable FLORO, BYRON L Attending Unavailable Medications Current Medications Medication Drug Class(es) Dates Sig (Normalized) Sig (Original) aspirin 81 mg delayed release oral tablet (16 sources) Platelet Aggregation Inhibitor, Nonsteroidal Anti-inflammatory Drug [...] Documented Da te Episodic/Chronic Headache; including migraine (19 sources) Migraine without aura, not refractory ; Translations: [Migraine without aura, not intractable, without status migrainosus] Onset: 04-06-2024 04-06-2024 Chronic Hypertension complicating ; childbirth and the puerperium (2 sources) Elevated blood pressure; Translations: [Unspecified maternal hypertension, third trimester] 07-05-2024 Chronic Malaise and fatigue (19 sources) Fatigue; Translations: [Chronic fatigue, unspecified] Onset: 04-06-2024 04-06-2024 Chronic Menstrual disorders (19 sources) Amenorrhea; Translations: [Amenorrhea, unspecified] Onset: 04-06-2024 04-06-2024 Chronic Other complications of (4 sources) Finding related to ; Translations: [ related conditions, unspecified, third trimester] 04-26-2024 Episodic Other lower respiratory disease (2 sources) Cough; Translations: [Acute cough] 04-06-2024 Episodic Other nervous system disorders (19 sources) Chronic pain; Translations: [Other chronic pain] Onset: 04-06-2024 04-06-2024 Chronic Other screening for suspected conditions (not mental disorders or infectious disease) (6 sources) Patient encounter status; Translations: [Encounter for screening for diseases of the blood and blood-forming organs and certain disorders involving the immune mechanism] 04-26-2024 Episodic Other upper respiratory disease (19 sources) Allergic rhinitis due to pollen; Translations: [...] Test Name Value Interpretation Reference Range Facility ALL CBC WITH AUTO DIFFon BASOPHILS ABSOLUTE AUTO 0 [facility] Basophils/100 WBC (Bld) 0.2 % 0.2 - 2.0 % [facility] Eosinophils/100 WBC (Bld) 0.9 % 0.9 - 7.0 % [facility] Erythrocyte distribution width (RBC) [Ratio] 13.1 % 11.0 - 15.0 % [facility] Hematocrit (Bld) [Volume fraction] 33.4 % Low 36.0 - 48.0 % [facility] Hemoglobin (Bld) [Mass/Vol] 11.6 g/dL Low 12.0 - 16.0 g/dL [facility] IMMATURE GRANULOCYTES ABS AUTO 0.17 High [facility] Immature granulocytes/100 WBC (Bld) 1.4 % High 0.0 - 0.5 % [facility] Interpretation and review of laboratory results Abnormal [facility] LYMPHOCYTES ABSOLUTE AUTO 1.1 Low [facility] Lymphocytes/100 WBC (Bld) 9.4 % Low 20.5 - 60.0 % [facility] MCH (RBC) [Entitic mass] 30.4 pg 26.7 - 34.0 pg [facility] MCHC (RBC) [Mass/Vol] 34.7 g/dL 29.9 - 35.2 g/dL [facility] MCV (RBC) [Entitic vol] 87.4 fL 81.0 - 99.0 fL [facility] MONOCYTES ABSOLUTE AUTO 0.5 [facility] Monocytes/100 WBC (Bld) 4.6 % 1.7 - 12.0 % [facility] NEUTROPHILS ABSOLUTE AUTO 9.9 High [facility] Neutrophils/100 WBC (Bld) 83.5 % High 43.0 - 75.0 % [facility] Platelet mean volume (Bld) [Entitic vol] 10.4 fL 9.5 - 13.5 fL [facility] are [facility] EO # 0.1 [facility] PLT 254 [facility] RBC 3.82 Low [facility] WBC 11.8 High [facility] US OB FOLLOW UP TRANSABDOMIN AL APPROACHon [...] 1481 gm / 3 lbs, 4 oz (8381-2218 gm) [place] Normal: 1513 gm (7126-7263 gm) [place] Wt%: 44% for 29.7 wks [...] (COVID-19) RNA SABINO+probe Ql (Unsp spec) Positive [facility] No Panel Informationon 04-06 FLU A Negative [facility] FLU B Negative [facility] Interpretation and review of laboratory results Abnormal [facility] US OB 14+ WEEKS ANATOMY SCAN [...] Date Time Vital Sign Value Performing Clinician Facility 07-05-2024 16:35-0500 Body mass index (BMI) [Ratio] 35.94 kg/m2 Byron Browning [facility] Work Phone: [facility] 07-05-2024 16:35-0500 Body weight 97.98 kg Byron Floro CNM Work Phone: [facility] 07-05-2024 16:35-0500 Diastolic blood pressure 100 mm[Hg] Byron Floro CNM Work Phone: [facility] Comment on above: 140/90 per CNM 07-05-2024 16:35-0500 Systolic blood pressure 160 mm[Hg] Byron Floro CNM Work Phone: [facility] Comment on above: 140/90 per CNM 06-08-2024 16:23-0500 Body mass index (BMI) [Ratio] 36.61 kg/m2 Byron Floro CNM Work Phone: [facility] 06-08-2024 16:23-0500 Body weight 99.79 kg Byron Floro CNM Work Phone: [facility] 06-08-2024 16:23-0500 Diastolic blood pressure 78 mm[Hg] Byron Floro CNM Work Phone: [facility] 06-08-2024 16:23-0500 Systolic blood pressure 128 mm[Hg] Byron Floro CNM Work Phone: [facility] 05-26-2024 15:45-0500 Body mass index (BMI) [Ratio] 34.45 kg/m2 Byron Floro CNM Work Phone: [facility] 05-26-2024 15:45-0500 Body weight 93.89 kg Byorn Floro CNM Work Phone: [facility] 05-26-2024 15:45-0500 Diastolic blood pressure 80 mm[Hg] Byron Floro CNM Work Phone: [facility] 05-26-2024 15:45-0500 Systolic blood pressure 128 mm[Hg] Byron Floro CNM Work Phone: [facility] 04-26-2024 15:08-0400 Body mass index (BMI) [Ratio] 34.61 kg/m2 Byron Floro CNM Work Phone: [facility] 04-26-2024 15:08-0400 Body weight 94.35 kg Byron Browning CNM Work Phone: [facility] 04-26-2024 15:08-0400 Diastolic blood pressure 60 mm[Hg] Byron Browning CNM Work Phone: [facility] 04-26-2024 15:08-0400 Systolic blood pressure 120 mm[Hg] Byron Browning CNM Work Phone: [facility] 04-06-2024 13:03-0400 Body height 165.1 cm Mariela Mckinley MD Work Phone: [facility] 04-06-2024 13:03-0400 Body mass index (BMI) [Ratio] 33.85 kg/m2 Mariela Mckinley MD Work Phone: [facility] 04-06-2024 13:03-0400 Body weight 92.26 kg Mariela Mckinley MD Work Phone: [facility] 04-06-2024 13:03-0400 Diastolic blood pressure 86 mm[Hg] Mariela Mckinley MD Work Phone: [facility] 04-06-2024 13:03-0400 Heart rate 108 /min Mariela Mckinley MD Work Phone: [facility] 04-06-2024 13:03-0400 Respiratory rate 18 /min Mariela Mckinley MD Work Phone: [facility] 04-06-2024 13:03-0400 SaO2% (BldA) [Mass fraction] 98 % Mariela Mckinley MD Work Phone: [facility] 04-06-2024 13:03-0400 Systolic blood pressure 132 mm[Hg] Mariela Mckinley MD Work Phone: [facility] 03-29-2024 17:36-0400 Body mass index (BMI) [Ratio] 34.45 kg/m2 Byron Browning CNM Work Phone: [facility] 03-29-2024 17:36-0400 Body weight 93.89 kg Byron Floro CNM Work Phone: [facility] 03-29-2024 17:36-0400 Diastolic blood pressure 78 mm[Hg] Byron Floro CNM Work Phone: [facility] 03-29-2024 17:36-0400 Systolic blood pressure 120 mm[Hg] Byron Floro CNM Work Phone: [facility] 03-01-2024 16:32-0400 Body mass index (BMI) [Ratio] 32.95 kg/m2 Byron Floro CNM Work Phone: [facility] 03-01-2024 16:32-0400 Body weight 89.81 kg Byron Floro CNM Work Phone: [facility] 03-01-2024 16:32-0400 Diastolic blood pressure 60 mm[Hg] Byron Floro CNM Work Phone: [facility] 03-01-2024 16:32-0400 Systolic blood pressure 110 mm[Hg] Byron Floro CNM Work Phone: [facility] 02-03-2024 16:32-0400 Body mass index (BMI) [Ratio] 32.62 kg/m2 Byron Floro CNM Work Phone: [facility] 02-03-2024 16:32-0400 Body weight 88.91 kg Byron Floro CNM Work Phone: [facility] 02-03-2024 16:32-0400 Diastolic blood pressure 76 mm[Hg] Byron Floro CNM Work Phone: [facility] 02-03-2024 16:32-0400 Systolic blood pressure 120 mm[Hg] Byron Floro CNM Work Phone: [facility] Encounters Encounter Date Encounter Type Care Provider Facility Start: 07-08-2024 End: 07-08-2024 Bamboo flowsheet Byron L Floro CNM Work Phone: [facility] Start: 07-08-2024 End: 07-08-2024 Bamboo flowsheet Byron L Floro CNM Work Phone: [facility] Start: 07-05-2024 End: 07-05-2024 Office outpatient visit 15 minutes Byron L Floro CNM Work Phone: [facility] Comment on above: Elevated blood press ure affecting in third trimester, antepartum (Primary Dx); screening for streptococcus B; Encounter for supervision of other normal , third trimester Start: 07-05-2024 ambulatory BYRON L FLORO Not Geetha ilable Start: 07-05-2024 End: 07-05-2024 [facility] Result Encounter Byron L Floro CNM Work Phone: [facility] Unsolicited Start: 07-05-2024 End: 07-05-2024 [facility] Result Encounter Byron L Floro CNM Work Phone: [facility] Unsolicited Start: 07-05-2024 End: 07-05-2024 Telephone encounter Byron L Floro CNM Work Phone: [facility] Start: 06-22-2024 End: 06-22-2024 ambulatory BYRON L FLORO Not Available Start: 06-22-2024 End: 06-22-2024 Bamboo flowsheet Byron L Floro CNM Work Phone: [facility] Start: 06-22-2024 End: 06-22-2024 Bamboo flowsheet Byron L Floro CNM Work Phone: [facility] Start: 06-08-2024 End: 06-08-2024 ambulatory BYRON L FLORO Not Available Start: 06-08-2024 End: 06-08-2024 Subsequent care visit Byron L Floro CNM Work Phone: [facility] [...] OB Start: 04-26-2024 End: 04-26-2024 Bamboo flowsheet Byron L Floro CNM Work Phone: [facility] Start: 04-07-2024 End: 04-07-2024 Telephone encounter Byron L Floro CNM Work Phone: [facility] Start: 04-06-2024 End: 04-06-2024 Office outpatient visit 15 minutes Mariela Mckinley MD Work Phone: [facility] Comment on above: COVID-19 (Primary Dx ); Acute cough Start: 04-06-2024 End: 04-06-2024 ambulatory MARIELA MCKINLEY Not Available Start: 03-29-2024 End: 03-29-2024 Office [...] Start: 03-01-2024 End: 03-01-2024 Bamboo flowsheet Byron Loretta Floro CNM Work Phone: [facility] Start: 02-03-2024 End: 02-03-2024 Office outpatient visit 15 minutes Byron Loretta Contreraso CNM Work Phone: [facility] [...] Date Procedure Procedure Detail Performing Clinician Start: 07-05-2024 ALL CBC WITH AUTO DIFF Byron Loretta Contreraso CNM Work Phone: Start: 04-06-2024 STATUS COVID-19/FLU Heidy Mckinley MD Work Phone: Plan of Treatment Date Care Activity Detail Author Start: 07-12-2024 End: 07-12-2024 Patient encounter procedure 07/12/2024 6:30 PM EST Routine [facility] [address] [place] [address] Byron Browning CNM [address] [place] [address] [facility] Start: 07-08-2024 End: 07-08-2024 Patient encounter procedure [facility] Comment on above: Arrived Start: 07-05-2024 End: 07-05-2024 Patient encounter procedure [facility] Start: 07-05-2024 End: 07-05-2025 STREPTOCCOUS, GROUP B CULTURE STREPTOCCOUS, GROUP B CULTURE Lab Routine screening for streptococcus B Expected: 07/05/2024 (Approximate), Expires: 07/05/2025 [facility] Work Phone: Comment on above: Expected: 07/05/2024 (Approximate), Expires: 07/05/2025 Start: 06-22-2024 End: 06-22-2024 Patient encounter procedure 06/22/2024 4:15 PM EST Routine [facility] [address] [place] [place] [id number] Byron Browning, [facility] [address] [place] [address] [facility] Start: 06-08-2024 End: 06-08-2024 Patient encounter procedure 06/08/2024 4:15 PM EST Routine [facility] [address] [place] [id number] Byron Browning, [facility] [address] [place] [address] [facility] Start: 06-01-2024 Influenza vaccination Influenza Vacc ine (#1) [facility] Comment on above: Postponed from 03/07 (Patient Ill Today) Start: 05-26-2024 End: 05-26-2024 Patient encounter procedure 05/26/2024 3:45 PM EST Routine [facility] [address] [place] [id number] Byron Browning, [facility] [address] [place] [address] Arrived [facility] Comment on above: Arrived Start: 04-26-2024 End: 04-26-2024 Patient encounter procedure [facility] Comment on above: Arrived Start: 04-26-2024 End: 04-26-2025 CBC panel - Blood by Automated count CBC Lab Routine Screening for iron deficiency anemia Expected: 04/26/2024 (Approximate), Expires: 04/26/2025 [facility] Comment on above: Expected: 04/26/2024 (Approximate), Expires: 04/26/2025 Start: 04-26-2024 End: 04-26-2025 GLUCOSE, GESTATIONAL SCREEN (50G)-135 CUTOFF GLUCOSE, GESTATIONAL SCREEN (50G)-135 CUTOFF Lab Routine Screening for diabetes mellitus Expected: 04/26/2024 (Approximate), Expires: 04/26/2025 [facility] Work Phone: Comment on above: Expected: 04/26/2024 (Approximate), Expires: 04/26/2025 Start: 04-26-2024 End: 04-26-2025 US for US OB follow up transabdominal approach Imaging Routine related condition in third trimester Expected: 04/26/2024, Expires: 04/26/2025 [facility] Comment on above: Expected: 04/26/2024 , Expires: 04/26/2025 Start: 03-29-2024 End: 03-29-2024 Patient encounter procedure [facility] Comment on above: Arrived Start: 03-07-2024 Influenza vaccination Influenza Vacc ine (#1) [facility] Start: 03-01-2024 End: 03-01-2024 Professional / ancillary services management 03/01/2024 5:00 PM EDT Ancillary Procedure [facility] [address] [place] [address] [facility] Start: 03-01-2024 End: 03-01-2024 Patient encounter procedure [facility] Comment on above: Arrived Start: 02-03-2024 End: 02-02-2025 US for US OB 14+ weeks anatomy scan Imaging Routine related condition in second trimester Expected: 02/03/2024, Expires: 02/02/2025 [facility] Work Phone: Comment on above: Expected: 02/03/2024 , Expires: 02/02/2025 Immunizations Immunization Date Immunization Notes Care Provider Fa edwardo 08-19-2018 tetanus toxoid, redu nadia diphtheria toxoid, and acellular pertussis vaccine, adsorbed Mariela Mckinley MD Work Phone: [facility] 08-18-2018 RHO(D) immune globul in- IV or IM Mariela Mckinley MD Work Phone: [facility] 06-01-2018 RHO(D) immune globul in- IV or IM Mariela Mckinley MD Work Phone: [facility] 05-18-2018 influenza, injectabl e, quadrivalent, contains preservative Mariela Mckinley MD Work Phone: [facility] 05-18-2018 tetanus toxoid, redu nadia diphtheria toxoid, and acellular pertussis vaccine, adsorbed Mariela Mckinley MD Work Phone: [facility] 05-18-2018 influenza virus vacc ine, unspecified formulation Byron Browning [facility] Work Phone: [facility] 09-05-2010 human papilloma viru s vaccine, quadrivalent Mariela Mckinley MD Work Phone: [facility] 09-05-2010 varicella virus vaccine Mariela Mckinley MD Work Phone: [facility] 04-23-2010 human papilloma viru s vaccine, quadrivalent Mariela Mckinley MD Work Phone: [facility] 02-19-2010 human papilloma viru s vaccine, quadrivalent Mariela Mckinley MD Work Phone: [facility] 02-19-2010 meningococcal polysaccharide (groups A, C, Y and W-135) diphtheria toxoid conjugate vaccine (MCV4P) Mariela Mckinley MD Work Phone: [facility] 02-19-2010 tetanus toxoid, redu nadia diphtheria toxoid, and acellular pertussis vaccine, adsorbed Mariela Mckinley MD Work Phone: [facility] 09-09-2002 diphtheria, tetanus toxoids and acellular pertussis vaccine, 5 pertussis antigens Mariela Mckinley MD Work Phone: [facility] 09-09-2002 measles, mumps and r ubella virus vaccine Mariela Mckinley MD Work Phone: [facility] 09-09-2002 poliovirus vaccine, inactivated Mariela Mckinley MD Work Phone: [facility] 10-18-1998 diphtheria, tetanus toxoids and acellular pertussis vaccine, unspecified formulation Mariela Mckinley MD Work Phone: [facility] 10-18-1998 haemophilus influenz ae type b vaccine, conjugate unspecified formulation Mariela Mckinley MD Work Phone: [facility] 07-06-1998 measles, mumps and r ubella virus vaccine Mariela Mckinley MD Work Phone: [facility] 07-06-1998 trivalent poliovirus vaccine, live, oral Mariela Mckinley MD Work Phone: [facility] 07-06-1998 varicella virus vaccine Mariela Mckinley MD Work Phone: [facility] 01-02-1998 diphtheria, tetanus toxoids and acellular pertussis vaccine, unspecified formulation Mariela Mckinley MD Work Phone: [facility] 01-02-1998 haemophilus influenz ae type b conjugate and Hepatitis B vaccine Mariela Mckinley MD Work Phone: [facility] 1997 diphtheria, tetanus toxoids and acellular pertussis vaccine, unspecified formulation Mariela Mckinley MD Work Phone: [facility] 1997 haemophilus influenz ae type b vaccine, conjugate unspecified formulation Mariela Mckinley MD Work Phone: [facility] 1997 poliovirus vaccine, inactivated Mariela Mckinley MD Work Phone: [facility] 1997 diphtheria, tetanus toxoids and acellular pertussis vaccine, unspecified formulation Mairela Mckinley MD Work Phone: [facility] 1997 haemophilus influenz ae type b conjugate and Hepatitis B vaccine Mariela Mckinley MD Work Phone: [facility] 1997 poliovirus vaccine, inactivated Mariela Mckinley MD Work Phone: [facility] 1997 hepatitis B vaccine, pediatric or pediatric/adolescent dosage Mariela Mckinley MD Work Phone: [facility] Payers Date Payer Category Payer Private Health Insurance [employer] [id number] 2023 Medicaid [id number] 2023 Medicaid [id number] 2023 Unknown [id number] 2022 Private Health Insurance [id number] 1997 Unknown [id number]. 1258 1997 Unknown [id number] [id number]. 1258 1997 Unknown [id number] [id number]. 1258 1997 Unknown [id number] [id number]. 1258 1997 Unknown [id number] [id number]. 1258 1997 Unknown [id number] 2.16.840.1.144171.3.579.2. 1258 1997 Unknown [id number] 2.16.840.1.263847.3.579.2. 1258 1997 Unknown [id number] 2.16.840.1.854591.3.579.2. 1258 1997 Unknown [id number] 2.16.840.1.838427.3.579.2. 1258 1997 Unknown [id number] 2.16.840.1.148555.3.579.2. 1258 1997 Unknown [id number] 2.16.840.1.263224.3.579.2. 1258 1997 Unknown [id number] [id number]. 1259 1997 Unknown [id number] [id number]. 1259 1997 Unknown [id number] [id number]. 1259 Social History Date Type Detail Facility Start: 12-11-2023 Tobacco smoking stat [facility] Never smoked tobacco [facility] Start: 12-11-2023 Tobacco use and exposure Smokeless t obacco non-user [facility] Start: 12-11-2023 End: 04-06-2024 Alcoholic beverage intake Ex-drinker (finding) [facility] Start: 12-11-2023 End: 04-06-2024 History of Social function [facility] Start: 12-11-2023 End: 04-06-2024 Tobacco use panel [facility] Start: 04-23-2023 Alcohol Comment Alcohol: 1 or 2 drinks on a typical day/monthly or less Caffeine: 2-3 cups/day coffee [facility] Start: 10-30-2023 [facility] Start: 1995 Sex assigned at Not on file [facility] Start: 09-18-2022 Gender identity Identifies as female gender (finding) [facility] Clinical Notes 02-03-2024 to 07-05-2024 MARIA D Masterson - 07/05/2024 4:45 PM ESTTelephone Encounter - Gregoriamisa Cháveza - 07/05/2024 2:18 PM ESTTelephone Encounter - Gregoria Lam - 07/05/2024 2:18 PM EST Note Date & Type Note Facility 07-05-2024 History of Presen t illness Narrative Subjective No chief complaint on file. Nusrat Araiza is a 29 y.o. at 37w4d with a working estimated date of delivery [...] 4, 20 months Her is complicated by: vomiting, diarrhea, has had on and off vomiting for the last couple of days Objective Physical Exam weight: 216 lb Expected Total Weight Gain: 11 lb-19 lb Pregravid BMI: 31.12 Temp- 99.0 Urine protein-negative Urine glucose-negative Assessment/Plan Diagnoses and all orders for this visit: Elevated blood pressure affecting in third trimester, antepartum screening for streptococcus B - STREPTOCCOUS, GROUP B CULTURE; Future Encounter for supervision of other normal , third trimester Elevated blood pressure Continue vitamin. Labs reviewed. GBS done today Expected mode of delivery Flu A, B and Covid were all negative in office today Patient states she has felt off the last couple of days. She cannot describe a sickness per say, only that she's more nauseated that anything. Denies headache, visual changes, and no epigastric pain. Send to [facility] for eval of pre-e Orders called to JACKELIN Kat, CBC, CMP, LDH, urine protein creatinine ratio, NST, and call me with results. PVU and all questions answered. Follow up in 1 week for a routine visit. documented in this encounter [facility] 07-05-2024 Telephone encount er Note Vm left 12:40 Pt is 38 weeks and hasn't been feeling well and would like a callback star [facility] 07-05-2024 Miscellaneous Notes Formattin g of this note might be different from the original. Vm left 12:40 Pt is 38 weeks and hasn't been feeling well and would like a callback star documented in this encounter [facility] 06-08-2024 History of Presen t illness Narrative [...] a routine visit. documented in this encounter [facility] 05-27-2024 Telephone encount er Note Pt states she cannot remember what medicine she was told that she could take for nausea heartburn. And now she is having some diarrhea. [facility] 05-27-2024 Miscellaneous Notes Formattin g of this note might be different from the original. Pt states she cannot remember what medicine she was told that she could take for nausea heartburn. And now she is having some diarrhea. documented in this encounter [facility] 05-26-2024 History of Presen t illness Narrative [...] a routine visit. documented in this encounter [facility] 04-26-2024 History of Presen t illness Narrative [...] for routine visit. documented in this encounter [facility] 04-07-2024 Telephone encount er Note Pt would like the rx for baby asprin sent to [facility] in [place]. [facility] 04-07-2024 Miscellaneous Notes Formattin g of this note might be different from the original. Pt would like the rx for baby asprin sent to [facility] in [place]. documented in this encounter [facility] 04-06-2024 History of Presen t illness Narrative [...] change in symptoms documented in this encounter [facility] 03-29-2024 History of Presen t illness Narrative [...] a routine visit. documented in this encounter [facility] 03-17-2024 Telephone encount er Note Nusrat was put on a Steroid and an Antibiotic for Sinus inf - she wants to make sure its ok to take being . Please call her at [phone] [facility] 03-17-2024 Miscellaneous Notes Formattin g of this note might be different from the original. Nusrat was put on a Steroid and an Antibiotic for Sinus inf - she wants to make sure its ok to take being . Please call her at [phone] documented in this encounter [facility] 03-01-2024 History of Presen t illness Narrative [...] a routine visit. documented in this encounter [facility] 02-03-2024 History of Presen t illness Narrative [...] a routine visit. documented in this encounter [facility] Healthcare Evaluation note Diagnosis COVID-19- Primary Acute [...] Marijuana use documented in this encounter [facility]* Diagnosis Elevated blood pressure affecting in third trimester, antepartum- Primary screening for streptococcus B screening for Streptococcus B Encounter for supervision of other normal , third trimester documented in this encounter [facility] Healthcare Summary Purpose Family History No Family History Records Found Advance Directives No Advanced Directives Records Found Additional Source Comments Reason for Visit (unrecogniz ed section and content) Reason Comments Cough Generalized Body Aches Care Teams (unrecognized sec tion and content) Human Resources Operations Coordinator Relationship Specialty Start Date End Date Mariela Mckinley MD [address] [place] [address] PCP - General Family Medicine 11/12/22 Human Resources Operations Coordinator Relationship Specialty Start Date End Date Mariela Mckinley MD [address] [place] [address] PCP - General Family Medicine 11/12/22 Human Resources Operations Coordinator Relationship Specialty Start Date End Date Mariela Mckinley MD [address] [place] [address] PCP - General Family Medicine 11/12/22 Human Resources Operations Coordinator Relationship Specialty Start Date End Date Mariela Mckinley MD [address] [place] [address] PCP - General Family Medicine 11/12/22 Human Resources Operations Coordinator Relationship Specialty Start Date End Date Mariela Mckinley MD [address] [place] [address] PCP - General Family Medicine 11/12/22 Human Resources Operations Coordinator Relationship Specialty Start Date End Date Mariela Mckinley MD [address] [place] [address] PCP - General Family Medicine 11/12/22 Human Resources Operations Coordinator Relationship Specialty Start Date End Date Mariela Mckinley MD [address] [place] [address] PCP - General Family Medicine 11/12/22 Human Resources Operations Coordinator Relationship Specialty Start Date End Date Mariela Mckinley MD [address] [place] [address] PCP - General Family Medicine 11/12/22 Human Resources Operations Coordinator Relationship Specialty Start Date End Date Mariela Mckinely MD [address] [place] [address] PCP - General Family Medicine 11/12/22 Human Resources Operations Coordinator Relationship Specialty Start Date End Date Mariela Mckinley MD [address] [place] [address] PCP - General Family Medicine 11/12/22 INFORMATION SOURCE (unrecogn ized section and content) DATE CREATED AUTHOR 07/07/2024 [facility] EPIC FOR RECORDS PERTAINING TO PATIENTS WHO ARE [...] BE BASED ON THE PRIMARY CLINICAL RECORDS. [facility]. provides no warranty or guarantee of the accuracy or completeness of information in this document.
[2024-07-15 16:04] VITALS: BP 123/87; PULSE 92
[2024-07-15 16:35] VITALS: BP 127/81; PULSE 86
[2024-07-15 16:49] LABS: Creatinine Urine Random 90.15 mg/dL (20.00-300.00); Protein Creatinine Ratio Urine 0.24; Total Protein Urine Random 21.4 mg/dL (<=11.9)
[2024-07-15 16:58] LABS: Alanine Aminotransferase 47 U/L (14-59); Albumin Globulin Ratio 0.8; Albumin Level 2.7 g/dL (3.4-5.0); Alkaline Phosphatase 198 U/L (46-116); Aspartate Amino Transferase 30 U/L (15-37); BUN Creatinine Ratio 18.8; Bilirubin Total 0.3 mg/dL (0.2-1.0); Calcium 8.6 mg/dL (8.5-10.1); Carbon Dioxide 25.2 mmol/L (21.0-32.0); Chloride 104 mmol/L (98-107); Estimated GFR (African America >60 (>=60 mL/min/1.73m^2); Estimated GFR (Non-African Ame >60 (>=60 mL/min/1.73m^2); Globulin 3.5 g/dL; Glucose 92 mg/dL (74-106); Lactate Dehydrogenase 164 U/L (81-234); Potassium 4.2 mmol/L (3.5-5.1); Sodium 137 mmol/L (136-145); Total Protein 6.2 g/dL (6.4-8.2)
[2024-07-15 17:12] VITALS: BP 128/84; PULSE 85
[2024-07-15] MEDS: BUTALB/ACETAMINOPHEN/CAFFEINE 50-325-40MG TABLET 1 TAB PO (18:04)
== END 2024-07-15 18:00 | disposition home or self-care (01) ==
LOC: FBCO 15:45 → FBC 15:47
PROVIDERS: PCP Family Medicine; Visit Provider Midwife
DX: O16.3 Unspecified maternal hypertension, third trimester (principal)
CPT/HCPCS: 36415; 59025; 80053; 82570; 83615; 84156

== ENCOUNTER 2024-07-19 07:15 | Inpatient (IN) | payer OTHER, SELFPAY ==
[2024-07-19] VITALS (54 sets, daily range): BP systolic 118–151; BP diastolic 63–96; PULSE 66–110; TEMP 36.3–36.8
--- OUTSIDE RECORDS SUMMARY | 2024-07-19 07:20 | XMS_ITS | CCD ---
Author Organization [facility] Care Team Providers Care Car Salter Name Role Phone Elías LUO, Mariela Torre Primary Care Provider FLORO, BYRON Loretta Attending Unavailable FLORO, BYRON L Referring Unavailable FLORO, BYRON L Attending Unavailable FLORO, BYRON L Attending Unavailable FLORO, BYRON L Attending Unavailable FLORO, BYRON L Referring Unavailable FLORO, BYRON Burgos Attending Unavailable ELÍASMARIELA MCDONOUGH Attending Unavailable FLORO, BYRON Loretta Attending Unavailable FLORO, BYRON L Referring Unavailable FLORO, BYRON L Attending Unavailable FLORO, BYRON L Attending Unavailable FLORO, BYRON L Attending Unavailable FLORO, BYRON L Attending Unavailable FLORO, BYRON L Attending Unavailable Medications Current Medications Medication Drug Class(es) Dates Sig (Normalized) Sig (Original) aspirin 81 mg delayed release oral tablet (18 sources) Platelet Aggregation Inhibitor, Nonsteroidal Anti-inflammatory Drug Start: 04-07-2024 End: 04-07-2025 take 1 tablet by mouth once daily aspirin 81 MG EC tablet Indications: COVID Take 1 tablet (81 mg) by mouth Daily 30 tablet 4 04/07/2024 04/07/2025 Active labetalol hydrochloride 100 mg oral tablet (2 sources) beta-Adrenergic Zain Start: 07-06-2024 take 1 tablet by mouth in the morning labetalol (Normodyne) 100 MG tablet Take 100 mg by mouth in the morning and 100 mg before bedtime. 07/06/2024 Active ondansetron 8 mg disintegrating oral tablet [...] Documented Da te Episodic/Chronic Headache; including migraine (20 sources) Migraine without aura, not refractory ; Translations: [Migraine without aura, not intractable, without status migrainosus] Onset: 04-06-2024 04-06-2024 Chronic Hypertension complicating ; childbirth and the puerperium (2 sources) Elevated blood pressure; Translations: [Unspecified maternal hypertension, third trimester] 07-05-2024 Chronic Malaise and fatigue (20 sources) Fatigue; Translations: [Chronic fatigue, unspecified] Onset: 04-06-2024 04-06-2024 Chronic Menstrual disorders (20 sources) Amenorrhea; Translations: [Amenorrhea, unspecified] Onset: 04-06-2024 04-06-2024 Chronic Other complications of (4 sources) Finding related to ; Translations: [ related conditions, unspecified, third trimester] 04-26-2024 Episodic Other lower respiratory disease (2 sources) Cough; Translations: [Acute cough] 04-06-2024 Episodic Other nervous system disorders (20 sources) Chronic pain; Translations: [Other chronic pain] Onset: 04-06-2024 04-06-2024 Chronic Other screening for suspected conditions (not mental disorders or infectious disease) (6 sources) Patient encounter status; Translations: [Encounter for screening for diseases of the blood and blood-forming organs and certain disorders involving the immune mechanism] 04-26-2024 Episodic Other upper respiratory disease (20 sources) Allergic rhinitis due to pollen; Translations: [...] Test Name Value Interpretation Reference Range Facility [facility] URINE T PROTEIN CREAT [facility] 07-15-2024 CREATININE URINE RANDOM 90.15 mg/dL 20.00 - 300.00 mg/dL [facility] Interpretation and review of laboratory results Abnormal [facility] Protein (U) [Mass/Vol] 21.4 mg/dL High NINF - 11.9 mg/dL [facility] PROTEIN CREATININE RATIO URINE 0.24 [facility] Healthcar e [facility] URINE T PROTEIN CREAT [facility] 07-12-2024 CREATININE URINE RANDOM 85.86 mg/dL 20.00 - 300.00 mg/dL [facility] Interpretation and review of laboratory results Abnormal [facility] Protein (U) [Mass/Vol] 20.3 mg/dL [facility]dL [facility] PROTEIN CREATININE RATIO URINE 0.24 [facility] Healthcar e ALL CBC WITH AUTO DIFFon BASOPHILS ABSOLUTE AUTO 0 [facility] Basophils/100 WBC (Bld) 0.2 % 0.2 - 2.0 % [facility] Eosinophils/100 WBC (Bld) 0.9 % 0.9 - 7.0 % [facility] Erythrocyte distribution width (RBC) [Ratio] 13.1 % 11.0 - 15.0 % [facility] Hematocrit (Bld) [Volume fraction] 33.4 % Low 36.0 - 48.0 % [facility] Hemoglobin (Bld) [Mass/Vol] 11.6 g/dL Low 12.0 - 16.0 g/dL [facility] IMMATURE GRANULOCYTES ABS AUTO 0.17 High [facility] Immature granulocytes/100 WBC (Bld) 1.4 % High 0.0 - 0.5 % [facility] Interpretation and review of laboratory results Abnormal [facility] LYMPHOCYTES ABSOLUTE AUTO 1.1 Low [facility] Lymphocytes/100 WBC (Bld) 9.4 % Low 20.5 - 60.0 % [facility] MCH (RBC) [Entitic mass] 30.4 pg 26.7 - 34.0 pg [facility] MCHC (RBC) [Mass/Vol] 34.7 g/dL 29.9 - 35.2 g/dL [facility] MCV (RBC) [Entitic vol] 87.4 fL 81.0 - 99.0 fL [facility] MONOCYTES ABSOLUTE AUTO 0.5 [facility] Monocytes/100 WBC (Bld) 4.6 % 1.7 - 12.0 % [facility] NEUTROPHILS ABSOLUTE AUTO 9.9 High [facility] Neutrophils/100 WBC (Bld) 83.5 % High 43.0 - 75.0 % [facility] Platelet mean volume (Bld) [Entitic vol] 10.4 fL 9.5 - 13.5 fL [facility] Healthc are [facility] EO # 0.1 [facility] PLT 254 [facility] RBC 3.82 Low [facility] WBC 11.8 High [facility] US OB FOLLOW UP TRANSABDOMIN [...] 1481 gm / 3 lbs, 4 oz (9458-2406 gm) [place] Normal: 1513 gm (2798-1918 gm) [facility] Wt%: 44% for 29.7 wks [...] normal. IMPRESSION: Normal growth. Dictated and transcribed 05/11/24dpd This report has been electronically signed and approved by the interpreting radiologist. Normal Not Available Laboratory - Microbiology an d Antimicrobial susceptibilityon 04-06-2024 SARS-CoV-2 (COVID-19) RNA SABINO+probe Ql (Unsp spec) Positive [facility] No Panel Informationon 04-06 FLU A Negative [facility] FLU B Negative [facility] Interpretation and review of laboratory results Abnormal [facility] US OB 14+ WEEKS ANATOMY [...] fluid volume is normal. Dictated and transcribed 03/03/24dpd This report has been electronically signed and [...] Body mass index (BMI) [Ratio] 35.94 kg/m2 [facility] Work Phone: [facility] 07-05-2024 16:35-0500 Body weight 97.98 kg Byron [facility] Work Phone: [facility] 07-05-2024 16:35-0500 Diastolic blood pressure 100 mm[Hg] [facility] Work Phone: [facility] Comment on above: 140/90 per [facility] 07-05-2024 16:35-0500 Systolic blood pressure 160 mm[Hg] [facility] Work Phone: [facility] Comment on above: 140/90 per [facility] 06-08-2024 16:23-0500 Body mass index (BMI) [Ratio] 36.61 kg/m2 [facility] Work Phone: [facility] 06-08-2024 16:23-0500 Body weight 99.79 kg [facility] Work Phone: [facility] 06-08-2024 16:23-0500 Diastolic blood pressure 78 mm[Hg] Byron Floro CNM Work Phone: [facility] 06-08-2024 16:23-0500 Systolic blood pressure 128 mm[Hg] Byron Floro CNM Work Phone: [facility] 05-26-2024 15:45-0500 Body mass index (BMI) [Ratio] 34.45 kg/m2 Byron Floro CNM Work Phone: [facility] 05-26-2024 15:45-0500 Body weight 93.89 kg Byron Floro CNM Work Phone: [facility] 05-26-2024 15:45-0500 Diastolic blood pressure 80 mm[Hg] Byron Floro CNM Work Phone: [facility] 05-26-2024 15:45-0500 Systolic blood pressure 128 mm[Hg] Byron Floro CNM Work Phone: [facility] 04-26-2024 15:08-0400 Body mass index (BMI) [Ratio] 34.61 kg/m2 Byron Floro CNM Work Phone: [facility] 04-26-2024 15:08-0400 Body weight 94.35 kg Byron Floro CNM Work Phone: [facility] 04-26-2024 15:08-0400 Diastolic blood pressure 60 mm[Hg] Byron Floro CNM Work Phone: [facility] 04-26-2024 15:08-0400 Systolic blood pressure 120 mm[Hg] Byron Floro CNM Work Phone: [facility] 04-06-2024 13:03-0400 Body height 165.1 cm Mariela Mckinley MD Work Phone: [facility] 04-06-2024 13:03-0400 Body mass index (BMI) [Ratio] 33.85 kg/m2 Mariela Mckinley MD Work Phone: [facility] 04-06-2024 13:03-0400 Body weight 92.26 kg Mariela Mckinley MD Work Phone: [facility] 04-06-2024 13:03-0400 Diastolic blood pressure 86 mm[Hg] Mariela Mckinley MD Work Phone: [facility] 04-06-2024 13:03-0400 Heart rate 108 /min Mariela Mckinley MD Work Phone: [facility] 04-06-2024 13:03-0400 Respiratory rate 18 /min Mariela Mckinley MD Work Phone: [facility] 04-06-2024 13:03-0400 SaO2% (BldA) [Mass fraction] 98 % Mariela Mckinley MD Work Phone: [facility] 04-06-2024 13:03-0400 Systolic blood pressure 132 mm[Hg] Mariela Mckinley MD Work Phone: [facility] 03-29-2024 17:36-0400 Body mass index (BMI) [Ratio] 34.45 kg/m2 Byron Floro CNM Work Phone: [facility] 03-29-2024 17:36-0400 Body weight 93.89 kg Byron Floro CNM Work Phone: [facility] 03-29-2024 17:36-0400 Diastolic blood pressure 78 mm[Hg] Byron Floro CNM Work Phone: [facility] 03-29-2024 17:36-0400 Systolic blood pressure 120 mm[Hg] Byron Floro CNM Work Phone: [facility] 03-01-2024 16:32-0400 Body mass index (BMI) [Ratio] 32.95 kg/m2 Byron Floro CNM Work Phone: [facility] 03-01-2024 16:32-0400 Body weight 89.81 kg Byron Floro CNM Work Phone: [facility] 03-01-2024 16:32-0400 Diastolic blood pressure 60 mm[Hg] Byron Floro CNM Work Phone: [facility] 03-01-2024 16:32-0400 Systolic blood pressure 110 mm[Hg] Byron Engo CNM Work Phone: [facility] 02-03-2024 16:32-0400 Body mass index (BMI) [Ratio] 32.62 kg/m2 Byron Engo CNM Work Phone: [facility] 02-03-2024 16:32-0400 Body weight 88.91 kg Byron Engo CNM Work Phone: [facility] 02-03-2024 16:32-0400 Diastolic blood pressure 76 mm[Hg] Byron Engo CNM Work Phone: [facility] 02-03-2024 16:32-0400 Systolic blood pressure 120 mm[Hg] Byron Engo CNM Work Phone: [facility] Encounters Encounter Date Encounter Type Care Provider Facility Start: 07-15-2024 End: 07-15-2024 [facility] Result Encounter Byron Loretta Engo CNM Work Phone: [facility] Unsolicited Start: 07-15-2024 End: 07-15-2024 [facility] Result Encounter Byron Loretta Engo CNM Work Phone: [facility] Unsolicited Start: 07-12-2024 End: 07-12-2024 [facility] Result Encounter Byron Loretta Engo CNM Work Phone: [facility] Unsolicited Start: 07-12-2024 End: 07-12-2024 [facility] Result Encounter Byron Loretta Engo CNM Work Phone: [facility] Unsolicited Start: 07-08-2024 End: 07-08-2024 ambulatory BYRON Loretta ENGO Not Available Start: 07-08-2024 End: 07-08-2024 Bamboo flowsheet Byron Loretta Engo CNM Work Phone: [facility] Start: 07-08-2024 End: 07-08-2024 Bamboo flowsheet Byron L Floro CNM Work Phone: [facility] Start: 07-05-2024 End: 07-05-2024 Office outpatient visit 15 minutes Byron Engo CNM Work Phone: [facility] Comment on above: Elevated blood press ure affecting in third trimester, antepartum (Primary Dx); screening for streptococcus B; Encounter for supervision of other normal , third trimester Start: 07-05-2024 End: 07-05-2024 ambulatory BYRON L FLORO Not Available Start: 07-05-2024 End: 07-05-2024 [facility] Result Encounter Byron Loretta Engo CNM Work Phone: [facility] Unsolic[facility] Start: 07-05-2024 End: 07-05-2024 [facility] Result Encounter Byron Loretta Engo CNM Work Phone: [facility] Unsolicited Start: 07-05-2024 End: 07-05-2024 Telephone encounter Byron Engo CNM Work Phone: [facility] Start: [...] 06-08-2024 End: 06-08-2024 Subsequent care visit Byron Loretta Floro CNM Work Phone: [facility] [...] Phone: [facility] Start: 03-01-2024 End: 08-26-2024 Bamboo flowsheet Byron L Floro CNM Work [...] Date Procedure Procedure Detail Performing Clinician Start: 07-15-2024 [facility] URINE T PROTEIN CREAT RATIO Byron L Floro CNM Work Phone: Start: 07-12-2024 [facility] URINE T PROTEIN CREAT RATIO Byron L Floro CNM Work Phone: Start: 07-05-2024 ALL CBC WITH AUTO DIFF Byron L Floro CNM Work Phone: Start: 04-06-2024 STATUS COVID-19/FLU Heidy y Yelitza Mckinley MD Work Phone: Plan of Treatment Date Care Activity Detail Author Start: 07-12-2024 End: 07-12-2024 Patient encounter procedure 07/12/2024 6:30 PM EST Routine [facility] [address] [place] [id number] Byron Browning CNM [address] [place] [address] [facility] Start: 07-12-2024 End: 07-12-2024 Patient encounter procedure 07/12/2024 3:30 PM EST Routine [facility] [address] [place] [id number] Byron Browning, CNM [address] [place] [address] [facility] Start: 07-08-2024 End: 07-08-2024 [...] PM EST Routine [facility] [address] [place] [id number] Byron Browning, [facility] [address] [place] [address] [facility] Start: 06-08-2024 End: 06-08-2024 Patient encounter procedure 06/08/2024 4:15 PM EST Routine [facility] [address] [place] [id number] Byron Browning, CN [address] [place] [address] [facility] Start: 06-01-2024 Influenza vaccination Influenza Vacc ine (#1) [facility] Comment on above: Postponed from 03/07 (Patient Ill Today) Start: 05-26-2024 End: 05-26-2024 Patient encounter procedure 05/26/2024 3:45 PM EST Routine [facility] [address] [place] [id number] Byron Browning, CN [address] [place] [address] Arrived [facility] Comment on above: Arrived Start: 04-26-2024 End: 04-26-2024 Patient encounter procedure [facility] Comment on above: Arrived Start: 04-26-2024 End: 04-26-2025 CBC panel - Blood by Automated count CBC Lab Routine Screening for iron deficiency anemia Expected: 04/26/2024 (Approximate), Expires: 04/26/2025 [facility] Comment on above: Expected: 04/26/2024 (Approximate), Expires: 04/26/2025 Start: 04-26-2024 End: 04-26-2025 GLUCOSE, GESTATIONAL SCREEN (50G)-135 CUTOFF GLUCOSE, GESTATIONAL SCREEN (50G)-135 CUTOFF Lab Routine Screening for diabetes mellitus Expected: 04/26/2024 (Approximate), Expires: 04/26/2025 [facility] Work Phone: Comment on above: Expected: 04/26/2024 (Approximate), Expires: 04/26/2025 Start: 04-26-2024 End: 04-26-2025 US for US OB follow up transabdominal approach Imaging Routine related condition in third trimester Expected: 04/26/2024, Expires: 04/26/2025 [facility] Healthcare Comment on above: Expected: 04/26/2024 , Expires: 04/26/2025 Start: 03-29-2024 End: 03-29-2024 Patient encounter procedure [facility] Comment on above: Arrived Start: 03-07-2024 Influenza vaccination Influenza Vacc ine (#1) [facility] Start: 03-01-2024 End: 03-01-2024 Professional / ancillary services management 03/01/2024 5:00 PM EDT Ancillary Procedure [facility] [address] [place] [phone] [facility] Start: 03-01-2024 End: 03-01-2024 Patient encounter procedure [facility] Comment on above: Arrived Start: 02-03-2024 End: 02-02-2025 US for US OB 14+ weeks anatomy scan Imaging Routine related condition in second trimester Expected: 02/03/2024, Expires: 02/02/2025 [facility] Work Phone: Comment on above: Expected: 02/03/2024 , Expires: 02/02/2025 Immunizations Immunization Date Immunization Notes Care Provider Chela brooke 08-19-2018 tetanus toxoid, redu nadia diphtheria toxoid, and acellular pertussis vaccine, adsorbed Mariela Mckinley MD Work Phone: [facility] 08-18-2018 RHO(D) immune globul in- IV or IM Mariela Mckinley MD Work Phone: [facility] 06-01-2018 RHO(D) immune globul in- IV or IM Mariela Mckinley MD Work Phone: [facility] 05-18-2018 influenza, injectabl e, quadrivalent, contains preservative Mariela Mckinley MD Work Phone: [facility] 05-18-2018 tetanus toxoid, redu nadia diphtheria toxoid, and acellular pertussis vaccine, adsorbed Mariela Mckinley MD Work Phone: [facility] 05-18-2018 influenza virus vacc ine, unspecified formulation Byron Browning [facility] Work Phone: [facility] 09-05-2010 human papilloma viru s vaccine, quadrivalent Mariela Mckinley MD Work Phone: [facility] 09-05-2010 varicella virus vaccine Mariela Mckinley MD Work Phone: [facility] 04-23-2010 human papilloma viru s vaccine, quadrivalent Mariela Mckinley MD Work Phone: [facility] 02-19-2010 human papilloma viru s vaccine, quadrivalent Mariela Mckinley MD Work Phone: [facility] 02-19-2010 meningococcal polysaccharide (groups A, C, Y and W-135) diphtheria toxoid conjugate vaccine (MCV4P) Mariela Mckinley MD Work Phone: [facility] 02-19-2010 tetanus toxoid, redu nadia diphtheria toxoid, and acellular pertussis vaccine, adsorbed Mariela Mckinley MD Work Phone: [facility] 09-09-2002 diphtheria, tetanus toxoids and acellular pertussis vaccine, 5 pertussis antigens Mariela Mckinley MD Work Phone: [facility] 09-09-2002 measles, mumps and r ubella virus vaccine Mariela Mckinley MD Work Phone: [facility] 09-09-2002 poliovirus vaccine, inactivated Mariela Mckinley MD Work Phone: [facility] 10-18-1998 diphtheria, tetanus toxoids and acellular pertussis vaccine, unspecified formulation Mariela Mckinley MD Work Phone: [facility] 10-18-1998 haemophilus influenz ae type b vaccine, conjugate unspecified formulation Mariela Mckinley MD Work Phone: [facility] 07-06-1998 measles, mumps and r ubella virus vaccine Mariela Mckinley MD Work Phone: [facility] 07-06-1998 trivalent poliovirus vaccine, live, oral Mariela Mckinley MD Work Phone: [facility] 07-06-1998 varicella virus vaccine Mariela Mckinley MD Work Phone: [facility] 01-02-1998 diphtheria, tetanus toxoids and acellular pertussis vaccine, unspecified formulation Mariela Mckinley MD Work Phone: [facility] 01-02-1998 haemophilus influenz ae type b conjugate and Hepatitis B vaccine Mariela Mckinley MD Work Phone: [facility] 1997 diphtheria, tetanus toxoids and acellular pertussis vaccine, unspecified formulation Mariela Mckinley MD Work Phone: [facility] 1997 haemophilus influenz ae type b vaccine, conjugate unspecified formulation Mariela Mckinley MD Work Phone: [facility] 1997 poliovirus vaccine, inactivated Mariela Mckinley MD Work Phone: [facility] 1997 diphtheria, tetanus toxoids and acellular pertussis vaccine, unspecified formulation Mariela Mckinley MD Work Phone: [facility] 1997 haemophilus influenz ae type b conjugate and Hepatitis B vaccine Mariela Mckinley MD Work Phone: [facility] 1997 poliovirus vaccine, inactivated Mariela Mckinley MD Work Phone: [facility] 1997 hepatitis B vaccine, pediatric or pediatric/adolescent dosage Mariela Mckinley MD Work Phone: [facility] Healthcare Payers Date Payer Category Payer Private Health Insurance [employer] [id number] 2023 Medicaid [id number] 2023 Medicaid [id number] 2023 Unknown [id number] 2022 Private Health Insurance [id number] 1997 Unknown [id number] [id number]. 9 1997 Unknown [id number] 2.16.840.1.091555.3.579.2. 9 1997 Unknown [id number] [id number]. 1259 1997 Unknown [id number] 2.16.840.1.897474.3.579.2. 9 1997 Unknown [id number] 2.16.840.1.759160.3.579.2. 9 1997 Unknown [id number] 2.16.840.1.788240.3.579.2. 1258 1997 Unknown [id number] 2.16.840.1.685071.3.579.2. 9 1997 Unknown [id number] 2.16.840.1.755842.3.579.2. 9 1997 Unknown [id number] 2.16.840.1.729230.3.579.2. 9 1997 Unknown [id number] 2.16.840.1.665760.3.579.2. 9 1997 Unknown [id number] 2.16.840.1.974537.3.579.2. 9 1997 Unknown [id number] 2.16.840.1.290535.3.579.2. 9 1997 Unknown [id number] 2.16.840.1.863446.3.579.2. 9 1997 Unknown [id number] 2.16.840.1.775044.3.579.2. 9 1997 Unknown [id number] [id number]. 9 Social History Date Type Detail Facility Start: 12-11-2023 Tobacco smoking stat [facility] Never smoked tobacco [facility] Start: 12-11-2023 Tobacco use and exposure Smokeless t obacco non-user [facility] Start: 12-11-2023 End: 04-06-2024 Alcoholic beverage intake Ex-drinker (finding) [facility] Start: 12-11-2023 End: 04-06-2024 History of Social function [facility] Start: 12-11-2023 End: 04-06-2024 Tobacco use panel [facility] Start: 04-23-2023 Alcohol Comment Alcohol: 1 or 2 drinks on a typical day/monthly or less Caffeine: 2-3 cups/day coffee [facility] Start: 10-30-2023 [facility] Start: 1995 Sex assigned at Not on file [facility] Start: 09-18-2022 Gender identity Identifies as female gender (finding) [facility] Clinical Notes 02-03-2024 to 07-05-2024 Byron Browning, CN - 07/05/2024 4:45 PM ESTTelephone Encounter - Gregoria Lam - [...] changes, and no epigastric pain. Send to [facility] for eval of pre-e Orders called to JACKELIN Kat, CBC, CMP, LDH, urine protein creatinine ratio, NST, and call me with results. PVU and all questions answered. Follow up in 1 week for a routine visit. documented in this encounter [facility] 07-05-2024 Telephone encount er Note Vm left 12:40 Pt is 38 weeks and hasn't been feeling well and would like a callback star [facility] 07-05-2024 Miscellaneous Notes Formattin g of this note might be different from the original. Vm left 12:40 Pt is 38 weeks and hasn't been feeling well and would like a callback star documented in this encounter [facility] 06-08-2024 History of Presen t illness Narrative [...] a routine visit. documented in this encounter [facility] 05-27-2024 Telephone encount er Note Pt states she cannot remember what medicine she was told that she could take for nausea heartburn. And now she is having some diarrhea. [facility] 05-27-2024 Miscellaneous Notes Formattin g of this note might be different from the original. Pt states she cannot remember what medicine she was told that she could take for nausea heartburn. And now she is having some diarrhea. documented in this encounter [facility] 05-26-2024 History of Presen t illness Narrative [...] a routine visit. documented in this encounter [facility] 04-26-2024 History of Presen t illness [...] for routine visit. documented in this encounter [facility] 04-07-2024 Telephone encount er Note Pt would like the rx for baby asprin sent to [facility] in [place]. [facility] 04-07-2024 Miscellaneous Notes Formattin g of this note might be different from the original. Pt would like the rx for baby asprin sent to [facility] in [place]. documented in this encounter [facility] 04-06-2024 History of Presen t illness Narrative [...] change in symptoms documented in this encounter [facility] 03-29-2024 History of Presen t illness Narrative [...] a routine visit. documented in this encounter [facility] 03-17-2024 Telephone encount er Note Nusrat was put on a Steroid and an Antibiotic for Sinus inf - she wants to make sure its ok to take being . Please call her at [phone] [facility] 03-17-2024 Miscellaneous Notes Formattin g of this note might be different from the original. Nusrat was put on a Steroid and an Antibiotic for Sinus inf - she wants to make sure its ok to take being . Please call her at [phone] documented in this encounter [facility] 03-01-2024 History of Presen t illness Narrative [...] a routine visit. documented in this encounter [facility] 02-03-2024 History of Presen t illness Narrative [...] a routine visit. documented in this encounter [facility] Evaluation note Diagnosis COVID-19- Primary Acute [...] , third trimester documented in this encounter [facility] Summary Purpose Family History No Family History Records Found Advance Directives No Advanced Directives Records Found Additional Source Comments Reason for Visit (unrecogniz ed section and content) Reason Comments Cough Generalized Body Aches Care Teams (unrecognized sec tion and content) Car Salter Relationship Specialty Start Date End Date Mariela Mckinley MD [address] [facility] [place] [address] PCP - General Family Medicine 11/12/22 Car Salter Relationship Specialty Start Date End Date Mariela Mckinley MD [address] [facility] [place] [address] PCP - General Family Medicine 11/12/22 Car [place]ter Relationship Specialty Start Date End Date Mariela Mckinley MD [address] [facility] [place] [address] PCP - General Family Medicine 11/12/22 Car Salter Relationship Specialty Start Date End Date Mariela Mckinley MD [address] [facility] [place] [address] PCP - General Family Medicine 11/12/22 Car Salter Relationship Specialty Start Date End Date Mariela Mckinley MD [address] [facility] [place] [address] PCP - General Family Medicine 11/12/22 Car Salter Relationship Specialty Start Date End Date Mariela Mckinley MD [address] [facility] [place] [address] PCP - General Family Medicine 11/12/22 Car Salter Relationship Specialty Start Date End Date Mariela Mckinley MD [address] [facility] [place] [address] PCP - General Family Medicine 11/12/22 Car Salter Relationship Specialty Start Date End Date Mariela Mckinley MD [address] [facility] [place] [address] PCP - General Family Medicine 11/12/22 Car Salter Relationship Specialty Start Date End Date Mariela Mckinley MD [address] [place] [address] PCP - General Family Medicine 11/12/22 Car Salter Relationship Specialty Start Date End Date Mariela Mckinley MD [address] [place] [address] PCP - General Family Medicine 11/12/22 INFORMATION SOURCE (unrecogn ized section and content) DATE CREATED AUTHOR 07/16/2024 [facility] FOR RECORDS PERTAINING TO PATIENTS WHO ARE [...] BE BASED ON THE PRIMARY CLINICAL RECORDS. [facility] [employer] [facility]. provides no warranty or guarantee of the accuracy or completeness of information in this document.
[2024-07-19 07:54] LABS: Hematocrit 31.8 % (36.0-48.0); Hemoglobin 10.8 g/dL (12.0-16.0); Mean Corpuscular Hemoglobin 29.3 pg (26.7-34.0); Mean Corpuscular Volume 86.4 fL (81.0-99.0); Mean Platelet Volume 10.8 fL (9.5-13.5); Platelet Count 266 10^3/uL (150-450); Red Blood Count 3.68 10^6/uL (4.20-5.40); White Blood Count 7.2 10^3/uL (4.0-11.0)
[2024-07-19] MEDS: OXYTOCIN/0.9 % SODIUM CHLORIDE 10 UNITS/500 ML PLAST..BAG 6 UNIT IV (08:01)
[2024-07-19] MEDS: LACTATED RINGER'S SOLUTION 1,000 ML 125 ML IV ×2 (08:01→17:24)
[2024-07-19 08:06] LABS: Amphetamine Screen Urine NEGATIVE (NEGATIVE); Barbiturates Screen Urine POSITIVE (NEGATIVE); Benzodiazepines Screen Urine NEGATIVE (NEGATIVE); Buprenorphine Screen Urine NEGATIVE (NEGATIVE); Cannabinoid Screen Urine POSITIVE (NEGATIVE); Cocaine Screen Urine NEGATIVE (NEGATIVE); Methadone Screen Urine NEGATIVE (NEGATIVE); Methamphetamines Screen Urine NEGATIVE (NEGATIVE); Opiate Screen Urine NEGATIVE (NEGATIVE); Oxycodone Screen Urine NEGATIVE (NEGATIVE); Phencyclidine Screen Urine NEGATIVE (NEGATIVE); Tricyclic Antidepressant Urine NEGATIVE (NEGATIVE)
--- NOTE | 2024-07-19 11:58 | P.OBPN_ITS ---
OB - PN: Subj Subjective Patient comments: no complaints [place] status: doing well Exam Constitutional Vital Signs, click to edit/add: Last Vital Signs Temp 98.3 F 07/19/24 08:04 Pulse 76 07/19/24 11:31 Resp 16 07/19/24 08:04 BP 133/85 07/19/24 11:31 Results Labs Labs: Short CBC 07/19/24 Range/Units 07:35 WBC 7.2 (4.0-11.0) 10^3/uL Hgb 10.8 L (12.0-16.0) g/dL Hct 31.8 L (36.0-48.0) % Plt Count 266 (150-450) 10^3/uL OB - PN: A/P Time Spent with Patient Time: Total time spent is greater than 50% in coordination of care (as documented) at patient's floor/unit and/or counseling patient:
[2024-07-19] MEDS: LABETALOL HCL 100 MG TABLET PO ×2 (11:59→21:30)
--- NOTE | 2024-07-19 11:59 | PM.OBHP ---
OB - H&P: HPI History of Present Illness Chief complaint: INDUCTION : 3 Para: 2 Gestational age based on last menstrual period: 39.4 Indications for induction: maternal hypertension Narrative: gestational hypertension and headaches. negative for pre-eclampsia History of Present Dating criteria: LMP confirmed by 1st trimester US care: good care Ultrasounds: normal 1st trimester US and normal mid trimester US Labs Blood type: A (-) negative Rubella: immune RPR/VDLR: nonreactive GBS status: negative HBsAG: negative Review of Systems ROS Status of ROS: 10 or more systems reviewed and unremarkable except as noted in history and below Meds Home Medications and Allergies Home Medications ?Medication ?Instructions ?Recorded ?Confirmed ?Type labetalol 100 mg tablet 100 mg PO Q12H 07/19/24 07/19/24 History Allergies Allergy/AdvReac Type Severity Reaction Status Date / Time No Known Drug Allergies Allergy Verified 07/05/24 19:01 Exam Constitutional Vital Signs, click to edit/add: Last Vital Signs Temp 98.3 F 07/19/24 08:04 Pulse 76 07/19/24 11:31 Resp 16 07/19/24 08:04 BP 133/85 07/19/24 11:31 Documenting provider has reviewed patient's vital signs: yes Common normals: no apparent distress, average body habitus, oriented x3, no limitations, healthy appearing, alert and well nourished Orientation/consciousness: Yes awake, Yes oriented to person, Yes oriented to place and Yes oriented to time HENLA Common normals: normocephalic Head and scalp: normal to inspection General ear: hearing grossly impaired Eye Common normals: EOMs intact bilaterally Neck & C-Spine Common normals: no lymphadenopathy General: normal visual inspection Lymph Lymphatic: no lymphadenopathy noted Chest Common normals: inspection of chest normal and palpation of chest normal Respiratory Common normals: normal respiratory effort Effort & inspection: able to speak in complete sentences Auscultation: clear to auscultation bilaterally Cardio Common normals: regular rate and regular rhythm Rate: regular rate Rhythm: regular rhythm GI Common normals: Normal to inspection, nondistended, normoactive bowel sounds present, soft to palpation and non-tender Palpation: soft Common normals: no CVA tenderness Back & Pelvis Common normals: no CVA tenderness Extremity Common normals: normal to inspection and full ROM Neuro Common normals: oriented x3 Sensorium/orientation: awake, alert, oriented to person, oriented to place and oriented to time Psych Common normals: mental status grossly normal, thought process normal, cooperative, affect normal, speech normal, activity/motor behavior normal, denies hallucinations, denies homicidal ideation and denies suicidal ideation Appearance: grossly normal Attitude: calm Speech: normal speech Thought process: normal thought process Thought content: normal thought content Results Labs Labs: Short CBC 07/19/24 Range/Units 07:35 WBC 7.2 (4.0-11.0) 10^3/uL Hgb 10.8 L (12.0-16.0) g/dL Hct 31.8 L (36.0-48.0) % Plt Count 266 (150-450) 10^3/uL OB - A/P Assessment and Plan (1) Gestational [-induced] hypertension without significant proteinuria, complicating childbirth: (2) Term : (3) Marijuana use:
[2024-07-19] MEDS: NALBUPHINE HCL 10 MG/ML AMPULE 20 MG IM (13:07)
[2024-07-19] MEDS: 0.9 % SODIUM CHLORIDE 1,000 ML 1000 ML IV (15:14)
[2024-07-19] MEDS: ROPIVACAINE HCL/PF 400 MG/200 ML PREMIX 6 MG EPIDURAL (15:37)
[2024-07-19] MEDS: OXYTOCIN/0.9 % SODIUM CHLORIDE 20 UNITS/1,000 ML PLAST..BAG 125 UNIT IV (19:33)
--- NOTE | 2024-07-19 20:33 | PM.OBPRCVD ---
Procedure Procedure: with 2nd degree repair and periurethral repair Intrapartal events: None Induction method: per pitocin protocol Delivery augmentation: rupture of membranes Delivery monitor: external FHT and external uterine Route of delivery: Episiotomy Description: none L&D Laceration Description: periurethral - 1st degree and perineal - 2nd degree Delivery repair: Vicryl Estimated blood loss (mL): 300 Anesthesia type: Epidural Disposition: no change Infant Delivery date: 07/19/24 Gender: female presentation: vertex Placental delivery description: Spontaneous cord description: 3 Vessels, Nuchal Cord, Loose and Reduced (reduced at delivery ) heart rate - 1 minute: 100 bpm or Greater respiratory effort - 1 minute: Spontaneous/Strong Cry muscle tone - 1 minute: Active Movement reflex response - 1 minute: Minimal Response color - 1 minute: Bluish Hands or Feet total score - 1 minute: 8 heart rate - 5 minute: 100 bpm or Greater respiratory effort - 5 minute: Spontaneous/Strong Cry muscle tone - 5 minute: Active Movement reflex response - 5 minute: Prompt Response color - 5 minute: Bluish Hands or Feet total score - 5 minute: 9
[2024-07-19] MEDS: IBUPROFEN 400 MG TABLET 800 MG PO (23:19)
[2024-07-20 03:39] VITALS: BP 133/90; PULSE 77
[2024-07-20 03:59] VITALS: TEMP 36.6
[2024-07-20] MEDS: BENZOCAINE/MENTHOL 85 GRAM SPRAY BOTTLE 1 APPLIC TOPICAL (05:16)
[2024-07-20 06:36] LABS: Basophils Percent Auto 0.2 % (0.2-2.0); Eosinophils Absolute Auto 0.1 10^3/uL (0.0-0.7); Eosinophils Percent Auto 0.9 % (0.9-7.0); Hemoglobin 9.2 g/dL (12.0-16.0); Immature Granulocytes Abs Auto 0.11 10^3/uL (0.00-0.03); Immature Granulocytes Pct Auto 0.9 % (0.0-0.5); Lymphocytes Absolute Auto 1.7 10^3/uL (1.2-3.8); Lymphocytes Percent Auto 14.2 % (20.5-60.0); Mean Corpuscular HGB Conc 34.1 g/dL (29.9-35.2); Mean Corpuscular Hemoglobin 29.4 pg (26.7-34.0); Mean Corpuscular Volume 86.3 fL (81.0-99.0); Mean Platelet Volume 10.3 fL (9.5-13.5); Monocytes Absolute Auto 0.8 10^3/uL (0.3-0.8); Monocytes Percent Auto 6.5 % (1.7-12.0); Neutrophils Absolute Auto 9.1 10^3/uL (1.4-6.5); Neutrophils Percent Auto 77.3 % (43.0-75.0); Platelet Count 234 10^3/uL (150-450); Red Blood Count 3.13 10^6/uL (4.20-5.40); White Blood Count 11.8 10^3/uL (4.0-11.0)
--- NOTE | 2024-07-20 08:18 | PM.OBPN ---
OB - PN: Subj Subjective Patient comments: no complaints [place] status: doing well [place] feeding status: breast and bottle feeding Exam Constitutional Vital Signs, click to edit/add: Last Vital Signs Temp 97.9 F 07/20/24 03:59 Pulse 77 07/20/24 03:39 Resp 16 07/20/24 03:59 BP 133/90 07/20/24 03:39 O2 Del Method Room Air 07/20/24 03:59 Common normals: no apparent distress Exam limitations: altered mental status General appearance: cooperative Orientation/consciousness: Yes awake, Yes oriented to person, Yes oriented to place and Yes oriented to time HENMT Common normals: normocephalic Eye Common normals: EOMs intact bilaterally Neck & C-Spine Common normals: full ROM General: normal visual inspection Lymph Lymphatic: no lymphadenopathy noted Chest Common normals: inspection of chest normal Respiratory Common normals: normal respiratory effort Effort & inspection: able to speak in complete sentences Cardio Common normals: regular rate and regular rhythm Rate: regular rate Rhythm: regular rhythm GI Common normals: Normal to inspection, nondistended, normoactive bowel sounds present Inspection: normal to inspection Auscultation: normoactive bowel sounds Common normals: no CVA tenderness Extremity Common normals: normal to inspection General: normal exam except as noted Neuro Common normals: oriented x3 Sensorium/orientation: awake, alert, oriented to person, oriented to place and oriented to time Psych Common normals: mental status grossly normal, thought process normal, cooperative, affect normal, speech normal, activity/motor behavior normal, denies hallucinations, denies homicidal ideation and denies suicidal ideation Attitude: calm Results Labs Labs: Short CBC 07/20/24 Range/Units 06:29 WBC 11.8 H (4.0-11.0) 10^3/uL Hgb 9.2 L (12.0-16.0) g/dL Hct 27.0 L (36.0-48.0) % Plt Count 234 (150-450) 10^3/uL Urinary Catheter Management Urinary Catheter Management Urethral: Cath placed during this visit: yes, but has since been removed by the nurse Insertion date: 07/19/24 Insertion time: 16:10 Removal date: 07/19/24 Removal time: 18:50 OB - PN: A/P Assessment and Plan (1) Gestational [-induced] hypertension without significant proteinuria, complicating childbirth: (2) Term : (3) Marijuana use: Plan - Vaginal Delivery day: 1 Plan: routine care Time Spent with Patient Time: Total time spent is greater than 50% in coordination of care (as documented) at patient's floor/unit and/or counseling patient: Total time spent with greater than 50% in coordination of care (as documented) at patient's floor/unit and/or counseling patient: less than 15 minutes
[2024-07-20 09:22] VITALS: BP 125/71; PULSE 79; TEMP 36.6
[2024-07-20] MEDS: DOCUSATE SODIUM 100 MG CAPSULE PO ×2 (09:22→21:23)
[2024-07-20] MEDS: LABETALOL HCL 100 MG TABLET PO ×2 (09:22→21:23)
[2024-07-20] MEDS: RHO(D) IMMUNE GLOBULIN 1,500 UNIT SYRINGE 1500 UNIT IV (13:51)
[2024-07-20 17:15] VITALS: BP 163/92; PULSE 84; TEMP 36.7
[2024-07-20] MEDS: IBUPROFEN 400 MG TABLET 800 MG PO (17:19)
[2024-07-20 18:04] VITALS: BP 138/90; PULSE 83
[2024-07-20 21:23] VITALS: BP 130/83; PULSE 78; TEMP 36.2
[2024-07-21 00:13] VITALS: BP 131/81; PULSE 75
[2024-07-21 04:30] VITALS: BP 134/85; PULSE 75
--- NOTE | 2024-07-21 10:07 | SWNOTE1 ---
SW consulted due to positive drug screen for Marijuana and Barbiturates. SW did speak with nurse and pt was here on 07/15/24 and was given Fiorcet for a headache and was given by Dr. Aranda and this could cause positive drug screen for Barbiturates. SW met with pt to discuss positive drug screen. Father of baby in room as well. Pt was aware she tested positive for Barbiturates and she did voice that she was here on 07/15/24 and was given med that caused this drug screen to be positive. Pt does admit to Marijuana use. She smoked it due to her appetite and not eating much. She does not plan on continuing use once home. Pt did have medical marijuana card in past, does not have a current card and does not plan on getting it. Pt and father of baby live together and there is a 6 year old son in house and 8 year old daughter as well. They do have everything they need at home for baby. Pt is breast feeding and supplementing with formula as well. Pt and father of baby voice they have good support at home as well. Pt did get time off work, 6 weeks. She is aware to call WIC and used them with her other daughter. SW spoke to her about post depression and she is aware or signs and has good support if needed. SW did advise pt and father of baby that at this time SW has to make report to CPS. Pt voiced understanding and they had to for her daughter as well. She stated CPS never did open a case. SW called and made report to [facility] CPS. SOLEDAD completed HIPAA form and sent to
[2024-07-21 10:11] VITALS: BP 132/82; PULSE 86
[2024-07-21] MEDS: LABETALOL HCL 100 MG TABLET PO (10:11)
[2024-07-21] MEDS: DOCUSATE SODIUM 100 MG CAPSULE PO (10:11)
--- NOTE | 2024-07-21 10:53 | P.OBPN_ITS ---
OB - PN: Subj Subjective Patient comments: no complaints and pain well controlled [place] status: doing well Exam Constitutional Vital Signs, click to edit/add: Last Vital Signs Temp 97.2 F L 07/20/24 21:23 Pulse 86 07/21/24 10:11 Resp 16 07/20/24 17:15 BP 132/82 07/21/24 10:11 O2 Del Method Room Air 07/21/24 00:15 Documenting provider has reviewed patient's vital signs: yes Common normals: no apparent distress Respiratory Common normals: clear to auscultation bilaterally Cardio Common normals: regular rate and regular rhythm GI Common normals: Normal to inspection, nondistended, normoactive bowel sounds present Extremity Common normals: no calf tenderness Urinary Catheter Management Urinary Catheter Management Urethral: Cath placed during this visit: yes, but has since been removed by the nurse Insertion date: 07/19/24 Insertion time: 16:10 Removal date: 07/19/24 Removal time: 18:50 OB - PN: A/P Assessment and Plan (1) Gestational [-induced] hypertension without significant proteinuria, complicating childbirth: (2) Term : (3) Marijuana use: Plan - Vaginal Delivery day: 2 Plan: routine care, discharge home and follow up 6 weeks Time Spent with Patient Time: Total time spent is greater than 50% in coordination of care (as documented) at patient's floor/unit and/or counseling patient: Total time spent with greater than 50% in coordination of care (as documented) a t patient's floor/unit and/or counseling patient: less than 15 minutes
[2024-07-22 00:07] LABS: Cannabinoid Positive (.); Carboxy THC Conf, MS, UR >750 ng/mL (Cutoff=10)
== END 2024-07-21 12:00 | disposition home or self-care (01) | DRG 560 ==
PROVIDERS: Admitting Provider Midwife; PCP Family Medicine; Visit Provider Midwife
DX: O13.4 Gestational [pregnancy-induced] hypertension without significant proteinuria, complicating childbirth (principal); O99.324 Drug use complicating childbirth; F12.90 Cannabis use, unspecified, uncomplicated; O70.1 Second degree perineal laceration during delivery; O69.81X0 Labor and delivery complicated by cord around neck, without compression, not applicable or unspecified; Z3A.39 39 weeks gestation of pregnancy; Z37.0 Single live birth; O26.893 Other specified pregnancy related conditions, third trimester; Z67.11 Type A blood, Rh negative
CPT/HCPCS: 36415; 51701; 51702; 59050; 59410; 80307; 80349; 85025; 85027; 85461; 86850; 86900; 86901; J2300; J2791; J2795